=== PATIENT | female | born 1965 | race Caucasian/White ===

== ENCOUNTER → 2017-01-23 | Outpatient (CLI) | payer OTHER ==
--- NOTE | 2017-01-23 14:32 | XR ---
EXAMINATION TYPE: XR chest 2V DATE OF EXAM: 01/23/2017 2:23 PM COMPARISON: NONE TECHNIQUE: PA and lateral views submitted. HISTORY: Cough and shortness of breath FINDINGS: The lungs are clear and there is no pneumothorax, pleural effusion, or focal pneumonia. Heart is en larged. Apical granuloma suspected on the right. IMPRESSION: 1. No acute process. Pulmonary arteries are slightly prominent correlate for pulmonary arterial hyper tension. Right apical granuloma suggested.
[2017-01-24 13:00] LABS: Alternaria alternata IgE <0.35 kU/L (<0.35); Asperg. fumagatus IgE <0.35 kU/L (<0.35); Asperg. fumagatus IgE Class CLASS 0; Birch(Com.Silvr) IgE Class CLASS 0; Cat Epith & Dander IgE 2.65 kU/L (<0.35); Cat Epith & Dander IgE Class CLASS II; Clad herbarum IgE <0.35 kU/L (<0.35); Clad herbarum IgE Class CLASS 0; Common Ragweed IgE Class CLASS 0; Dermato. Pteronyssinus Class CLASS 0; Dermato. Pteronyssinus IgE <0.35 kU/L (<0.35); Dermato. farinae IgE <0.35 kU/L (<0.35); Dermato. farinae IgE Class CLASS 0; IgE (Allergen) 67.3 IU/mL (<114.0); Maple (Box Elder) IgE <0.35 kU/L (<0.35); Maple (Box Elder) IgE Class CLASS 0; Mountain Cedar IgE <0.35 kU/L (<0.35); Mountain Cedar IgE Class CLASS 0; Mouse Urine IgE Class CLASS 0; Mouse Urine Proteins,IgE <0.35 kU/L (<0.35); Mulberry IgE Class CLASS 0; Nettle IgE <0.35 kU/L (<0.35); Nettle IgE Class CLASS 0; Oak IgE <0.35 kU/L (<0.35); Penicillium notatum IgE Class CLASS 0; Rough Marshelder IgE <0.35 kU/L (<0.35); Rough Marshelder IgE Class CLASS 0; Timothy Grass IgE <0.35 kU/L (<0.35); Timothy Grass IgE Class CLASS 0; White Ash IgE Class CLASS 0
[2017-02-10 17:57] LABS: Alternaria tenius IgG 4.8 mcg/mL (< 13.6); Cladosporium herbarium IgG 35.1 mcg/mL (< 14.7); Saccaharomospora viridis Not detected (Not detected); Saccaharopoly. rectivirgula Not detected (Not detected)
== END | disposition home or self-care (01) ==
LOC: RADXRMAIN 14:06
PROVIDERS: ATTEND Internal Medicine Sleep Medicine
DX: I28.8 Other diseases of pulmonary vessels (principal); J40 Bronchitis, not specified as acute or chronic; B44.89 Other forms of aspergillosis
CPT/HCPCS: 36415; 71020; 82785; 86001; 86003; 86606; 86609

== ENCOUNTER → 2017-12-16 | Outpatient (CLI) | payer OTHER ==
--- NOTE | 2017-12-18 10:57 | MM ---
Reason for exam: screening (asymptomatic). Last mammogram was performed 1 year and 5 months ago. History: Patient is postmenopausal and is nulliparous. Physical Findings: A clinical breast exam by your physician is recommended on an annual basis and results should be correlated with mammographic findings. MG Screening Mammo w CAD Bilateral CC and MLO view(s) were taken. Prior study comparison: August 01, 2016, mammogram, performed at [facility]. December 19, 2014, mammogram, performed at [facility]. There are scattered fibroglandular densities. There is no discrete abnormality. No significant changes when compared with prior studies. ASSESSMENT: Negative, BI-RAD 1 RECOMMENDATION: Routine screening mammogram of both breasts in 1 year.
== END | disposition home or self-care (01) ==
LOC: RADMAMWWP 11:07
PROVIDERS: ATTEND Internal Medicine
DX: Z12.31 Encounter for screening mammogram for malignant neoplasm of breast (principal)
CPT/HCPCS: 77067

== ENCOUNTER → 2018-01-18 | Outpatient (CLI) | payer OTHER ==
[2018-01-18 10:49] VITALS: BP 138/86; PULSE 82; TEMP 98.4; BMI 45.7
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
[2018-01-20 15:01] LABS: Anabasine Urine <2.0 ng/mL (<2.0)
== END | disposition home or self-care (01) ==
LOC: BARWHC3 10:01
PROVIDERS: ATTEND Surgery Plastic and Reconstructive Surgery
DX: E66.01 Morbid (severe) obesity due to excess calories (principal); E11.9 Type 2 diabetes mellitus without complications; K21.9 Gastro-esophageal reflux disease without esophagitis; E78.5 Hyperlipidemia, unspecified; I10 Essential (primary) hypertension; M54.5 Low back pain; M19.90 Unspecified osteoarthritis, unspecified site; F41.9 Anxiety disorder, unspecified; F32.9 Major depressive disorder, single episode, unspecified; M17.0 Bilateral primary osteoarthritis of knee; Z79.4 Long term (current) use of insulin; Z98.890 Other specified postprocedural states; Z68.42 Body mass index [BMI] 45.0-49.9, adult
CPT/HCPCS: G0480; G0463; 80307; 80323; 80356; 99211

== ENCOUNTER → 2018-01-31 | Outpatient (CLI) | payer OTHER ==
--- NOTE | 2018-01-31 07:42 | US ---
EXAMINATION TYPE: US abdomen limited DATE OF EXAM: 01/31/2018 COMPARISON: NONE CLINICAL HISTORY: R10.11 RUQ Abdominal Pain; severe diarrhea after fatty meals; pre gastric bypass as sessment; HTN and diabetes per patient; HT5'1, [id number] EXAM MEASUREMENTS: Liver Length: 19.2 cm Gallbladder Wall: 0.2 cm CBD: 0.4 cm Right Kidney: 10.3 x 6.0 x 5.6 cm Pancreas: hyperechoic Liver: enlarged Gallbladder: multiple, mobile and shadowing stones;sludge noted in dependent portion in LLD position Evidence for sonographic Rawls's sign: No CBD: wnl Right Kidney: No hydronephrosis or masses seen IMPRESSION: 1. Mild hepatomegaly. 2. Cholelithiasis with gallbladder sludge.
--- NOTE | 2018-01-31 12:05 | NM ---
EXAMINATION TYPE: NM hepatobiliary w EF DATE OF EXAM: 01/31/2018 COMPARISON: Abdomen ultrasound 01/31/2018 HISTORY: Abdomen pain TECHNIQUE: After the intravenous administration of 5.09 mCi Tc 99m Mebrofenin hepatobiliary scintigra phy is performed. Immediate images post injection. FINDINGS: There is satisfactory initial accumulation of tracer by the liver. The gallbladder is visualized wit hin 40 minutes. The small bowel activity is noted within a minutes. Liver is enlarged. At one hour 8 ounces of oral ensure plus is given to mimic CCK and gallbladder ejection fraction is calculated at 27 %, abnormal low. Therefore there is no scintigraphic evidence of cystic or common bile duct obst ruction. IMPRESSION: Abnormal low gallbladder ejection fraction and hepatomegaly
== END | disposition home or self-care (01) ==
LOC: RADUSWWP 06:48
PROVIDERS: ATTEND Surgery Plastic and Reconstructive Surgery
DX: K80.20 Calculus of gallbladder without cholecystitis without obstruction (principal); R16.0 Hepatomegaly, not elsewhere classified
CPT/HCPCS: 76705; 78226; A9537

== ENCOUNTER → 2018-03-06 | Outpatient (CLI) | payer OTHER ==
[2018-03-06 10:54] LABS: HCT 34.7 % (34.0-46.0); HGB 10.7 gm/dL (11.4-16.0); Hypochromasia Slight; MCH 23.8 pg (25.0-35.0); MCHC 30.8 g/dL (31.0-37.0); MCV 77.2 fL (80.0-100.0); Mean Platelet Volume 6.6; Microcytosis Slight; Platelet Count 459 k/uL (150-450); RBC 4.49 m/uL (3.80-5.40); RDW 15.5 % (11.5-15.5); WBC 10.3 k/uL (3.8-10.6)
[2018-03-06 11:12] LABS: Potassium 4.4 mmol/L (3.5-5.1)
== END | disposition home or self-care (01) ==
LOC: LABWHC1 10:03
PROVIDERS: ATTEND Surgery Plastic and Reconstructive Surgery
DX: K80.10 Calculus of gallbladder with chronic cholecystitis without obstruction (principal)
CPT/HCPCS: 36415; 80051; 85027; 93005

== ENCOUNTER 2018-03-08 11:17 | Day surgery (SDC) | payer OTHER ==
[2018-03-02 14:20] VITALS: BMI 68.3
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
[~2018-03-08 11:17] MED LIST: ACETAMINOPHEN IV (For NPO) 1,000 MG in EMPTY BAG 1 BAG IVPB ONE; CLINDAMYCIN 900 MG in DEXTROSE 5% IN WATER 50 ML IVPB ONE; DEXAMETHASONE SOD PHOSPHATE 10 MG/ML 1 ML VIAL IV ONE; GENTAMICIN 460 MG in SODIUM CHLORIDE 0.9% 100 ML IVPB ONE; HEPARIN SODIUM,PORCINE 5,000 UNIT/ML 1 ML VIAL SQ ONE; LACTATED RINGERS 1,000 ML IV SCH; MIDAZOLAM 2 MG/2 ML VIAL IV PRN; ONDANSETRON 4 MG/2 ML VIAL IVP ONE; SCOPOLAMINE 1.5MG/72HR PATCH TRANSDERM ONE; SCOPOLAMINE 1.5MG/72HR PATCH TRANSDERM STA
[2018-03-08] MEDS ORDERED: LIDOCAINE 1% 20 ML VIAL (10MG/ML) FOR IV START INTRADERMA ONE (12:04)
[2018-03-08 12:11] LABS: Basophils # (A) 0.1 k/uL (0-0.2); Basophils % (A) 0 %; Eosinophils # (A) 0.2 k/uL (0-0.7); Eosinophils % (A) 2 %; HCT 33.9 % (34.0-46.0); HGB 10.8 gm/dL (11.4-16.0); Hypochromasia Slight; Lymphocytes # (A) 1.6 k/uL (1.0-4.8); Lymphocytes % (A) 16 %; MCH 24.2 pg (25.0-35.0); MCHC 31.8 g/dL (31.0-37.0); MCV 76.1 fL (80.0-100.0); Mean Platelet Volume 6.6; Microcytosis Slight; Monocytes # (A) 0.4 k/uL (0-1.0); Monocytes % (A) 4 %; Neutrophils # (A) 7.8 k/uL (1.3-7.7); Neutrophils % (A) 77 %; Platelet Count 464 k/uL (150-450); RBC 4.46 m/uL (3.80-5.40); RDW 15.6 % (11.5-15.5); WBC 10.2 k/uL (3.8-10.6)
[2018-03-08 12:15] LABS: Glucose,Whole Blood 161 mg/dL (75-99)
[2018-03-08 12:30] LABS: ALT 25 U/L (9-52); AST 19 U/L (14-36); Albumin 3.7 g/dL (3.5-5.0); Alkaline Phosphatase 129 U/L (38-126); Anion Gap 13 mmol/L; Blood Urea Nitrogen 18 mg/dL (7-17); Carbon Dioxide 24 mmol/L (22-30); Chloride 103 mmol/L (98-107); Glucose 152 mg/dL (74-99); Sodium 140 mmol/L (137-145); Total Bilirubin 0.6 mg/dL (0.2-1.3); Total Protein 6.8 g/dL (6.3-8.2)
[2018-03-08] MEDS ORDERED: INDOCYANINE GREEN 25 MG VIAL IV ONE (13:35)
[2018-03-08] MEDS ORDERED: PROPOFOL 10 MG/ML 20 ML VIAL IV ONE (13:35)
[2018-03-08] MEDS ORDERED: SUCCINYLCHOLINE CHLORIDE 100 MG/5 ML SYR IV ONE (13:35)
[2018-03-08] MEDS ORDERED: fentaNYL (PF) 50 MCG/ML 2 ML AMP ONE (13:35)
[2018-03-08] MEDS ORDERED: CLINDAMYCIN 150 MG/ML 6 ML VIAL ONE (13:35)
[2018-03-08] MEDS ORDERED: NEOSTIGMINE 1 MG/ML 10 ML VIAL ONE (13:35)
[2018-03-08] MEDS ORDERED: ROCURONIUM BROMIDE 10 MG/ML 10 ML VIAL IV ONE (13:35)
[2018-03-08] MEDS ORDERED: GLYCOPYRROLATE 0.2 MG/ML 2 ML VIAL ONE (13:35)
[2018-03-08] MEDS ORDERED: MIDAZOLAM 2 MG/2 ML VIAL ONE (13:35)
[2018-03-08] MEDS ORDERED: LIDOCAINE 1% INJ 10MG/ML (20 ML MDV) ONE (13:35)
[2018-03-08] MEDS ORDERED: LIDOCAINE 1% INJ 10MG/ML (20 ML MDV) SQ ONE (14:11)
[2018-03-08 15:31] VITALS: TEMP 98
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
[2018-03-08 15:33] VITALS: RESP 16
[2018-03-08 15:43] LABS: Glucose,Whole Blood 228 mg/dL (75-99)
[2018-03-08] MEDS ORDERED: INSULIN ASPART 100 UNIT/ML 1 ML 10 ML VIAL SQ ONE (15:46)
--- NOTE | 2018-03-08 16:00 | P.OP ---
Date of Procedure: 03/08/18 Description of Procedure: SURGEON: JAKE MAURER MD DOLLY PUSHER: PREOPERATIVE DIAGNOSES: 1. Symptomatic gallstones 2. Chronic cholecystitis 3. Morbid obesity due to excess calories, BMI 68.4 4. Insulin-dependent diabetes type 2 5. Hypertensive heart disease 6. Hyperlipidemia 7. Gastroesophageal reflux disease 8. Hypothyroidism 9. Depressive disorder 10. Asthma 11. Obstructive sleep apnea 12. Lymphedema bilateral lower extremities POSTOPERATIVE DIAGNOSES: 1. Symptomatic gallstones 2. Chronic cholecystitis 3. Morbid obesity due to excess calories, BMI 68.4 4. Insulin-dependent diabetes type 2 5. Hypertensive heart disease 6. Hyperlipidemia 7. Gastroesophageal reflux disease 8. Hypothyroidism 9. Depressive disorder 10. Asthma 11. Obstructive sleep apnea 12. Lymphedema bilateral lower extremities 13. Fatty liver disease, nonalcoholic 14. Severe hepatomegaly 15. 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 SPECIMENS REMOVED: Gallbladder. COMPLICATIONS: None. OPERATIVE FINDINGS: 1. Chronic cholecystitis INDICATIONS: The patient is a 53-year-old female who presents with cholelcystitis. Surgical intervention with a laparoscopic cholecystectomy was described at length including injury to the biliary tree, bleeding, infection, need for further surgery. Informed consent was obtained. Robotic assisted laparoscopic approach was described. Benefits and risks of the procedure including but not limited to bleeding, infection, injury to the biliary tree was described. Informed consent was obtained. DESCRIPTION OF PROCEDURE: Patient was brought to the operating room, placed in supine position. After general induction, the abdomen had been prepped and draped in standard sterile fashion. The robotic da En XI system was primed. After a timeout protocol was performed, the patient had been prepped and draped in standard sterile fashion. The patient was injected with indocyanine green. A 5 mm 0 degrees laparoscopic trocar entry was performed along the left upper quadrant. The abdomen insufflated to 15 mmHg pressure which she tolerated well. Diagnostic laparoscopy demonstrated no injury to bowel viscera or mesentery. The liver had severe hepatomegaly obscuring the gallbladder including moderate intra-abdominal fat. Nodular appearance of the liver was identified consistent with early cirrhosis. Next, two 8 mm robotic ports were placed along the right upper abdomen. The camera 8-mm port was maintained along the epigastrium. Another 8 mm port was placed along the left of the upper midline abdominal wall after exchanging the 5 mm port. Please note that the ports were placed at least 10 to 15 cm away from the target anatomy of the gallbladder. The robot was docked along the left lateral abdomen. The patient was repositioned in reverse Trendelenburg position at 20-degrees. Using a grasper for arm 3, a grasper for arm 4, including hook cautery for arm 1 , the robotic system was docked and primed as described. Instruments were interchanged by the rehab assistant including hook cautery, Bovie cautery and clip appliers. I had sat at the console. Adhesions were identified along the infundibulum of the gallbladder and addressed using hook cautery. The gallbladder had severe hepatomegaly adding complexity to her case by at least 30 minutes. The gallbladder fundus was retracted towards the abdominal wall. Initial attention was brought to the infundibulum which was gently retracted in the inferior lateral approach. Using a grasper, the cystic duct including the cystic artery was carefully skeletonized. FIREFLY was used to identify the cystic artery and cystic structures. Large PLASTIC clips were used throughout the entire case. Using a clip medical transcriptionist 2 clips were placed proximally, and 1 clip was placed distally along the cystic duct and then cauterized with the cautery. Additional clips were used to control for accessory bile duct. Again care was taken to avoid any injury to the biliary tree as the common bile duct was clearly visualized during this portion of dissection. Next, the cystic artery was similarly clipped and cauterized. Electro-Bovie cautery was used to remove the gallbladder from the hepatic fossa. Hemostasis was checked and found to be adequate. Iatrogenic decompression did occur of the gallbladder. The robot was undocked. I re-scrubbed into the case. Using a 10 mm Endo Catch bag via the left upper quadrant incision, the specimen was removed from the abdominal cavity. All pneumoperitoneum instruments were evacuated from the abdominal cavity. The incisions were reapproximated using 4-0 Monocryl in an interrupted subcuticular fashion. Fascial defects were less than 8 mm in size. Please note along the trocar sites, local anesthetic was placed as a field block prior to insertion of all instruments. All incisions were cleansed using diluted hydrogen peroxide. Liquid glue was applied to the skin. At the end of the procedure needle, sponge, and instrument count had been verified correct by the surgical territory manager. The patient was transferred to postanesthesia care unit in stable condition. Intraoperative films were shared with the patient's family who were very pleased with the level of care. Console time 41 minutes
[2018-03-08] MEDS: fentaNYL (PF) 50 MCG/ML 2 ML AMP IV PRN ×2 (16:02→16:05)
[2018-03-08] MEDS ORDERED: ONDANSETRON 4 MG/2 ML VIAL IVP ONE (16:29)
[2018-03-08 17:37] VITALS: BP 131/66; PULSE 70
[2018-03-08 17:45] LABS: Glucose,Whole Blood 229 mg/dL (75-99)
== END 2018-03-08 18:10 | disposition home or self-care (01) ==
LOC: OR 11:17
PROVIDERS: ATTEND Surgery Plastic and Reconstructive Surgery
DX: K80.10 Calculus of gallbladder with chronic cholecystitis without obstruction (principal); E66.01 Morbid (severe) obesity due to excess calories; Z68.44 Body mass index [BMI] 60.0-69.9, adult; I11.9 Hypertensive heart disease without heart failure; E78.5 Hyperlipidemia, unspecified; K21.9 Gastro-esophageal reflux disease without esophagitis; E03.9 Hypothyroidism, unspecified; F32.9 Major depressive disorder, single episode, unspecified; J45.909 Unspecified asthma, uncomplicated; G47.33 Obstructive sleep apnea (adult) (pediatric); I89.0 Lymphedema, not elsewhere classified; K76.0 Fatty (change of) liver, not elsewhere classified; K74.60 Unspecified cirrhosis of liver; E11.9 Type 2 diabetes mellitus without complications; M19.90 Unspecified osteoarthritis, unspecified site; G43.909 Migraine, unspecified, not intractable, without status migrainosus; R00.2 Palpitations; Z99.89 Dependence on other enabling machines and devices; Z79.82 Long term (current) use of aspirin; Z79.890 Hormone replacement therapy; Z79.4 Long term (current) use of insulin; Z79.899 Other long term (current) drug therapy; Z88.5 Allergy status to narcotic agent; Z91.048 Other nonmedicinal substance allergy status; Z88.0 Allergy status to penicillin; Z91.013 Allergy to seafood; Z91.041 Radiographic dye allergy status
CPT/HCPCS: 80053; 85025; 47562; J2250; J1644; J1100; J2710; J2405; J2001; J3010; J1580; J0131; J0330; J2704; 88304

== ENCOUNTER → 2018-03-20 | Outpatient (CLI) | payer OTHER ==
[2018-03-20 09:08] LABS: HCT 32.6 % (34.0-46.0); HGB 10.5 gm/dL (11.4-16.0); Hypochromasia Slight; MCH 24.7 pg (25.0-35.0); MCHC 32.3 g/dL (31.0-37.0); MCV 76.5 fL (80.0-100.0); Mean Platelet Volume 6.2; Microcytosis Slight; Platelet Count 445 k/uL (150-450); RBC 4.26 m/uL (3.80-5.40); RDW 15.5 % (11.5-15.5); WBC 9.6 k/uL (3.8-10.6)
[2018-03-20 09:15] LABS: Appearance,Urine Clear (Clear); Bilirubin,Urine Negative (Negative); Blood,Urine Negative (Negative); Color,Urine Light Yellow; Glucose,Urine (UA) Negative (Negative); Ketones,Urine Negative (Negative); Leukocyte Esterase,Urine Negative (Negative); Nitrite,Urine Negative (Negative); PH, Urine 5.5 (5.0-8.0); Protein,Urine Negative (Negative); Specific Gravity,Urine 1.007 (1.001-1.035); Urobilinogen,Urine <2.0 mg/dL (<2.0)
--- NOTE | 2018-03-20 09:22 | CT ---
EXAMINATION TYPE: CT abdomen pelvis wo con DATE OF EXAM: 03/20/2018 COMPARISON: None HISTORY: pain CT DLP: 2831.8 mGycm Examination of the solid and hollow viscera is limited given the lack of contrast. FINDINGS: LUNG BASES: No evidence for nodule. No evidence for infiltrate. LIVER/GB: The gallbladder is unremarkable. No space-occupying hepatic lesion. PANCREAS: No pancreatic mass identified. No inflammatory process seen. SPLEEN: No evidence for splenomegaly. No intrasplenic lesions seen. ADRENALS: No adrenal nodules identified. No evidence for thickening. KIDNEYS: No evidence for renal mass. No nephrolithiasis. No hydronephrosis. BOWEL: Appendix has a normal appearance. No evidence of bowel obstruction. No inflammatory process. Lymph nodes: No evidence for adenopathy greater than 1 cm. Abdominal aorta: Atheromatous changes seen. No evidence for aneurysm. Genital organs: No significant abnormality. Other: No significant abnormality. IMPRESSION: 1. No evidence for hydronephrosis or nephrolithiasis.
[2018-03-20 09:33] LABS: ALT 22 U/L (9-52); AST 24 U/L (14-36); Albumin 3.6 g/dL (3.5-5.0); Alkaline Phosphatase 113 U/L (38-126); Anion Gap 12 mmol/L; Blood Urea Nitrogen 16 mg/dL (7-17); Carbon Dioxide 27 mmol/L (22-30); Chloride 101 mmol/L (98-107); Glucose 151 mg/dL (74-99); Potassium 3.9 mmol/L (3.5-5.1); Sodium 140 mmol/L (137-145); Total Bilirubin 0.4 mg/dL (0.2-1.3); Total Protein 6.6 g/dL (6.3-8.2)
== END | disposition home or self-care (01) ==
LOC: RADCTMAIN 07:55
PROVIDERS: ATTEND Surgery Plastic and Reconstructive Surgery
DX: N20.0 Calculus of kidney (principal); N39.0 Urinary tract infection, site not specified; Z88.0 Allergy status to penicillin; Z88.5 Allergy status to narcotic agent
CPT/HCPCS: 36415; 74176; 80053; 81003; 85027

== ENCOUNTER 2018-05-16 07:00 | Day surgery (SDC) | payer OTHER ==
[2018-05-10 10:09] VITALS: BMI 64.9
[~2018-05-16 07:00] MED LIST changes: -ACETAMINOPHEN IV (For NPO) 1,000 MG in EMPTY BAG 1 BAG IVPB ONE; -CLINDAMYCIN 900 MG in DEXTROSE 5% IN WATER 50 ML IVPB ONE; -DEXAMETHASONE SOD PHOSPHATE 10 MG/ML 1 ML VIAL IV ONE; -GENTAMICIN 460 MG in SODIUM CHLORIDE 0.9% 100 ML IVPB ONE; -HEPARIN SODIUM,PORCINE 5,000 UNIT/ML 1 ML VIAL SQ ONE; +LIDOCAINE 1% 20 ML VIAL (10MG/ML) FOR IV START INTRADERMA PRN; -MIDAZOLAM 2 MG/2 ML VIAL IV PRN; -ONDANSETRON 4 MG/2 ML VIAL IVP ONE; -SCOPOLAMINE 1.5MG/72HR PATCH TRANSDERM ONE; -SCOPOLAMINE 1.5MG/72HR PATCH TRANSDERM STA
[2018-05-16 07:50] VITALS: TEMP 98.2
[2018-05-16] MEDS ORDERED: LACTATED RINGERS 1,000 ML IV ONE ×2 (07:51)
[2018-05-16 07:52] LABS: Glucose,Whole Blood 147 mg/dL (75-99)
[2018-05-16] MEDS ORDERED: ONDANSETRON 4 MG/2 ML VIAL ONE (07:57)
[2018-05-16] MEDS ORDERED: PROPOFOL 10 MG/ML 20 ML VIAL IV ONE (07:57)
[2018-05-16] MEDS ORDERED: MIDAZOLAM 2 MG/2 ML VIAL ONE (07:57)
[2018-05-16] MEDS ORDERED: KETAMINE 10 MG/ML 20 ML VIAL ONE (07:57)
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
--- NOTE | 2018-05-16 08:24 | P.PCN ---
Date of Procedure: 05/16/18 Condition: other Description of Procedure: PREOPERATIVE DIAGNOSIS: Gastroesophageal reflux disease. Morbid obesity. POSTOPERATIVE DIAGNOSIS: Morbid obesity. Gastritis. Gastroesophageal reflux disease. OPERATION: Esophagogastroduodenoscopy with biopsies along antrum. SURGEON: Dot Tate MD ANESTHESIA: MAC. INDICATIONS: The patient is a 53-year-old female who presents with a history of reflux disease. Benefits and risks of the procedure were described. Informed consent was obtained. DESCRIPTION: The patient was brought into the endoscopy suite and laid in the left lateral decubitus position. An Olympus gastroscope was passed along the posterior oropharynx down to the distal esophagus where the squamocolumnar junction was encountered at 40 cm from the incisors. The stomach was entered and no bile reflux was found. Additional findings are listed below. Biopsies with cold forceps were obtained of the antrum. The first through third portion of the duodenum was examined and unremarkable. Retroflexion of the scope confirmed Hill grade 2 lower esophageal valve. The squamocolumnar junction demonstrated LA grade A erosive esophagitis. The stomach was desufflated. The patient tolerated the procedure well. FINDINGS: Squamocolumnar junction 40 cm from the incisors. Diaphragmatic hiatus at 40 cm. Hill grade 2 lower esophageal valve. LA grade A erosive esophagitis. No active duodenitis. Active gastritis RECOMMENDATIONS: Upper endoscopy as needed.
--- NOTE | 2018-05-16 08:42 | P.PCN ---
Date of Procedure: 05/16/18 Description of Procedure: PREOPERATIVE DIAGNOSIS: Colonoscopy screening, first POSTOPERATIVE DIAGNOSIS: Colonoscopy screening. OPERATION: Colonoscopy to the ileocecal valve and appendiceal orifice. SURGEON: Dot Tate MD. ANESTHESIA: MAC. INDICATIONS: The patient is a 53-year-old female who presents for colonoscopy screening. Benefits and risks were described and informed consent was obtained. DESCRIPTION OF PROCEDURE: The patient had undergone Gatorade, MiraLAX and Dulcolax prep. She had been brought into the operating room and laid in the left lateral decubitus position. After adequate intravenous sedation, the rectum was examined with 2% lidocaine jelly. No external hemorrhoids were encountered. The rectal tone was within normal limits. No lesions were palpated in the rectal vault. An Olympus colonoscope was advanced until the ileocecal valve and appendiceal orifice were clearly viewed. The prep was excellent with clear visualization of the mucosal folds. The scope was removed with visualization of each mucosal fold. No scattered diverticulosis was encountered. No colonic polyps were found. No evidence of focal colitis was found. Retroflexion of the scope demonstrated no internal hemorrhoids without active bleeding or inflammation. The colon was desufflated. The patient had tolerated the procedure well. Withdrawal time was over 6 minutes. FINDINGS: No internal hemorrhoids No external prolapsed hemorrhoids. No arteriovenous malformations. No adenomatous polyps. No focal colitis. RECOMMENDATIONS: Lower endoscopy in 10 years per screening guidelines; however down to 5 years, 2022, with family history of colon polyps or cancer. Plan - Discharge Summary New Discharge Prescriptions: No Action Levothyroxine Sodium [Synthroid] 150 mcg PO DAILY Citalopram Hydrobromide [Citalopram HBr] 40 mg PO DAILY Atorvastatin [Lipitor] 80 mg PO HS Omeprazole [PriLOSEC] 20 mg PO AC-BRKFST Cholecalciferol [Vitamin D3] 4,000 unit PO DAILY Loratadine [Claritin] 10 mg PO HS Furosemide [Lasix] 40 mg PO DAILY Montelukast [Singulair] 10 mg PO HS Magnesium Oxide [Mag-Ox] 400 mg PO BID Losartan Potassium [Cozaar] 100 mg PO DAILY metFORMIN HCL [Glucophage] 1,000 mg PO BID Aspirin 81 mg PO DAILY Insulin Glargine [Lantus] 30 unit SQ HS Insulin Glulisine [Apidra] 20 units SQ TID-W/MEALS amLODIPine [Norvasc] 5 mg PO BID Gabapentin [Neurontin] 100 mg PO DAILY Gabapentin [Neurontin] 200 mg PO HS hydrALAZINE HCL [Apresoline] 50 mg PO BID Insulin Glulisine [Apidra] 0 unit SQ AC-TID PRN PRN Reason: Blood Sugar - High Diltiazem HCl 30 mg PO BID Ferrous Sulfate [Iron] 325 mg PO BID Insulin Glulisine [Apidra] 4 unit SQ HS PRN PRN Reason: takes with hs snack Discharge Medication List Atorvastatin [Lipitor] 80 mg PO HS 01/26/15 [History] Cholecalciferol [Vitamin D3] 4,000 unit PO DAILY 01/26/15 [History] Citalopram Hydrobromide [Citalopram HBr] 40 mg PO DAILY 01/26/15 [History] Levothyroxine Sodium [Synthroid] 150 mcg PO DAILY 01/26/15 [History] Omeprazole [PriLOSEC] 20 mg PO AC-BRKFST 01/26/15 [History] Furosemide [Lasix] 40 mg PO DAILY 07/18/16 [History] Loratadine [Claritin] 10 mg PO HS 07/18/16 [History] Losartan Potassium [Cozaar] 100 mg PO DAILY 07/18/16 [History] Magnesium Oxide [Mag-Ox] 400 mg PO BID 07/18/16 [History] Montelukast [Singulair] 10 mg PO HS 07/18/16 [History] Aspirin 81 mg PO DAILY 01/18/18 [History] Gabapentin [Neurontin] 100 mg PO DAILY 01/18/18 [History] Insulin Glargine [Lantus] 30 unit SQ HS 01/18/18 [History] Insulin Glulisine [Apidra] 20 units SQ TID-W/MEALS 01/18/18 [History] amLODIPine [Norvasc] 5 mg PO BID 01/18/18 [History] metFORMIN HCL [Glucophage] 1,000 mg PO BID 01/18/18 [History] Gabapentin [Neurontin] 200 mg PO HS 03/02/18 [History] hydrALAZINE HCL [Apresoline] 50 mg PO BID 03/02/18 [History] Insulin Glulisine [Apidra] 0 unit SQ AC-TID PRN 03/06/18 [History] Diltiazem HCl 30 mg PO BID 05/10/18 [History] Ferrous Sulfate [Iron] 325 mg PO BID 05/10/18 [History] Insulin Glulisine [Apidra] 4 unit SQ HS PRN 05/10/18 [History]
[2018-05-16 09:13] VITALS: RESP 18
[2018-05-16 09:38] VITALS: BP 102/65; PULSE 61
== END 2018-05-16 09:44 | disposition home or self-care (01) ==
LOC: ORWHC2ENDO 07:00
PROVIDERS: ATTEND Surgery Plastic and Reconstructive Surgery
DX: Z12.11 Encounter for screening for malignant neoplasm of colon (principal); K21.9 Gastro-esophageal reflux disease without esophagitis; K29.70 Gastritis, unspecified, without bleeding; K22.10 Ulcer of esophagus without bleeding; K31.9 Disease of stomach and duodenum, unspecified; E78.5 Hyperlipidemia, unspecified; J45.909 Unspecified asthma, uncomplicated; E11.9 Type 2 diabetes mellitus without complications; I10 Essential (primary) hypertension; M19.90 Unspecified osteoarthritis, unspecified site; E07.9 Disorder of thyroid, unspecified; G47.30 Sleep apnea, unspecified; Z99.89 Dependence on other enabling machines and devices; I89.0 Lymphedema, not elsewhere classified; D64.9 Anemia, unspecified; E66.01 Morbid (severe) obesity due to excess calories; Z68.44 Body mass index [BMI] 60.0-69.9, adult; F32.9 Major depressive disorder, single episode, unspecified; F41.9 Anxiety disorder, unspecified; Z79.82 Long term (current) use of aspirin; Z79.890 Hormone replacement therapy; Z79.4 Long term (current) use of insulin; Z79.899 Other long term (current) drug therapy; Z91.041 Radiographic dye allergy status; Z88.5 Allergy status to narcotic agent; Z88.0 Allergy status to penicillin; Z91.013 Allergy to seafood; Z91.048 Other nonmedicinal substance allergy status; Z91.09 Other allergy status, other than to drugs and biological substances
CPT/HCPCS: 88305; 43239; J2250; J2405; J2704; G0121

== ENCOUNTER 2018-07-25 23:01 | Observation (INO) | payer OTHER ==
--- NOTE | 2018-07-25 23:13 | ED ---
Chest Pain HPI - General Chief Complaint: Chest Pain Stated Complaint: CHEST PAIN,DIZZINESS,SOB Time Seen by Provider: 07/25/18 23:10 Source: patient, RN notes reviewed, old records reviewed Mode of arrival: wheelchair Limitations: no limitations - History of Present Illness Initial Comments: This is a 53-year-old female to the ER for evaluation. Patient presents today for evaluation Chua chest pain chest pain shortness breath exertional shortness of breath. History of high blood pressure, no significant known history of cardiac disease, patient states she had heart catheterization 2 years ago which was normal far as she knows. No recent fever no cough or congestion. She has chest pain 3 days source of after yesterday and EKG done was told was normal, patient states symptoms have persisted mainly exertional shortness of breath and dyspnea. Patient's activity level significantly decreased MD Complaint: chest pain -: days(s) (5) Onset: during rest, during exertion Pain Location: substernal, epigastric Pain Radiation: none Severity: moderate Severity scale (1-10): 6 Quality: tightness, heaviness Consistency: intermittent Improves With: nothing Worsens With: exertion Anginal Symptoms: nausea, vomiting, dyspnea Treatments Prior to Arrival: none - Related Data Home Medications Medication Instructions Recorded Confirmed Atorvastatin [Lipitor] 80 mg PO HS 01/26/15 07/25/18 Citalopram Hydrobromide 40 mg PO DAILY 01/26/15 07/25/18 [Citalopram HBr] Omeprazole [PriLOSEC] 20 mg PO DAILY 01/26/15 07/25/18 Furosemide [Lasix] 40 mg PO DAILY 07/18/16 07/25/18 Loratadine [Claritin] 10 mg PO HS 07/18/16 07/25/18 Losartan Potassium [Cozaar] 100 mg PO DAILY 07/18/16 07/25/18 Magnesium Oxide [Mag-Ox] 400 mg PO BID 07/18/16 07/25/18 Montelukast [Singulair] 10 mg PO HS 07/18/16 07/25/18 Aspirin 81 mg PO DAILY 01/18/18 07/25/18 Gabapentin [Neurontin] 100 mg PO DAILY 01/18/18 07/25/18 Insulin Glargine [Lantus] 30 unit SQ HS 01/18/18 07/25/18 Insulin Glulisine [Apidra] 20 units SQ AC-TID 01/18/18 07/25/18 amLODIPine [Norvasc] 5 mg PO BID 01/18/18 07/25/18 metFORMIN HCL [Glucophage] 1,000 mg PO BID 01/18/18 07/25/18 Gabapentin [Neurontin] 200 mg PO HS 03/02/18 07/25/18 hydrALAZINE HCL [Apresoline] 100 mg PO DAILY 03/02/18 07/25/18 Insulin Glulisine [Apidra] See Protocol SQ AC-TID 03/06/18 07/25/18 Diltiazem HCl 60 mg PO BID 05/10/18 07/25/18 Cholecalciferol (Vitamin D3) 4,000 unit PO DAILY 07/25/18 07/25/18 [Vitamin D3] Levothyroxine Sodium [Synthroid] 200 mcg PO DAILY 07/25/18 07/25/18 hydrALAZINE HCL [Apresoline] 50 mg PO HS 07/25/18 07/25/18 Allergies Allergy/AdvReac Type Severity Reaction Status Date / Time adhesive tape Allergy Rash/Hives Verified 07/25/18 23:34 Iodinated Contrast- Oral and Allergy Anaphylaxis Verified 07/25/18 23:34 IV Dye iodine Allergy Anaphylaxis Verified 07/25/18 23:34 Penicillins Allergy Anaphylaxis Verified 07/25/18 23:34 shellfish derived [Shellfish] Allergy Anaphylaxis Verified 07/25/18 23:34 codeine AdvReac Nausea & Verified 07/25/18 23:34 Vomiting Review of Systems ROS Statement: Those systems with pertinent positive or pertinent negative responses have been documented in the HPI. ROS Other: All systems not noted in ROS Statement are negative. EKG Findings - EKG Comments: EKG Findings:: EKG shows normal sinus rhythm rate of 85, NH 140, QRS 96, QTc 480 Past Medical History Past Medical History: Asthma, Diabetes Mellitus, GERD/Reflux, Hyperlipidemia, Hypertension, Osteoarthritis (OA), Sleep Apnea/CPAP/BIPAP, Thyroid Disorder Additional Past Medical History / Comment(s): PVC"PALPITATIONS, MIGARINES, LYMPHEDEMA -BILATERAL LEGS WEARS LEG BRACES FOR IT, History of Any Multi-Drug Resistant Organisms: None Reported Past Surgical History: Appendectomy, Section, Cholecystectomy, Heart Catheterization, Hysterectomy, Orthopedic Surgery Additional Past Surgical History / Comment(s): LT LEG/ANLKE- HARDWARE WAS RMOVED -A SMALL PEICE OF SCREW LEFT, COLONOSCOPY-BENIGN POLYPS Past Anesthesia/Blood Transfusion Reactions: Motion Sickness Additional Past Anesthesia/Blood Transfusion Reaction / Comment(s): CAN'T RIDE IN BACK SEAT OF CAR Past Psychological History: Anxiety, Depression Smoking Status: Never smoker Past Alcohol Use History: None Reported Past Drug Use History: None Reported - Past Family History Father Family Medical History: Coronary Artery Disease (CAD), Diabetes Mellitus, Hypertension Additional Family Medical History / Comment(s): HAD TOTAL OCCLUSION LT GROIN - HAD SX Mother Family Medical History: Dementia, Diabetes Mellitus, Thyroid Disorder General Exam Limitations: no limitations General appearance: alert, in no apparent distress, anxious, obese Head exam: Present: atraumatic, normocephalic, normal inspection Eye exam: Present: normal appearance, PERRL, EOMI. Absent: scleral icterus, conjunctival injection, periorbital swelling ENT exam: Present: normal exam, mucous membranes moist Neck exam: Present: normal inspection. Absent: tenderness, meningismus, lymphadenopathy Respiratory exam: Present: normal lung sounds bilaterally. Absent: respiratory distress, wheezes, rales, rhonchi, stridor Cardiovascular Exam: Present: regular rate, normal rhythm, normal heart sounds. Absent: systolic murmur, diastolic murmur, rubs, gallop, clicks GI/Abdominal exam: Present: soft, normal bowel sounds. Absent: distended, tenderness, guarding, rebound, rigid Extremities exam: Present: normal inspection, full ROM, normal capillary refill. Absent: tenderness, pedal edema, joint swelling, calf tenderness Back exam: Present: normal inspection Neurological exam: Present: alert, oriented X3, CN II-XII intact Psychiatric exam: Present: normal affect, normal mood Skin exam: Present: warm, dry, intact, normal color. Absent: rash Course Vital Signs 07/25/18 07/25/18 07/26/18 23:03 23:50 00:10 Temperature 97.9 F Pulse Rate 92 79 75 Respiratory 18 18 19 Rate Blood Pressure 220/82 148/75 136/66 O2 Sat by Pulse 95 92 L 95 Oximetry 07/26/18 07/26/18 07/26/18 00:20 00:30 00:40 Temperature Pulse Rate 81 74 72 Respiratory 18 19 18 Rate Blood Pressure 136/66 136/66 136/66 O2 Sat by Pulse 96 96 96 Oximetry - Reevaluation(s) Reevaluation #1: 07/26/18 02:12 medical record is reviewed Patient continued with chest pain shortness of breath Chest Pain MDM - MDM 53 female the ER for evaluation of chest pain exertional dyspnea. Patient is CT negative, patient with persistent chest pain and elevated blood pressure, patient be admitted for cardiac observation Disposition Clinical Impression: Chest pain Disposition: ADMITTED IP TO THIS HOSP Condition: Undetermined Is patient prescribed a controlled substance at d/c from ED?: No Referrals: Chu Winchester MD [Primary Care Provider] - 1-2 days
[2018-07-25] MEDS ORDERED: SODIUM CHLORIDE 0.9% 1,000 ML IV STA (23:15)
[2018-07-25 23:50] LABS: Basophils # (A) 0.1 k/uL (0-0.2); Basophils % (A) 1 %; Eosinophils # (A) 0.3 k/uL (0-0.7); Eosinophils % (A) 3 %; HCT 38.2 % (34.0-46.0); HGB 11.7 gm/dL (11.4-16.0); Hypochromasia Slight; Lymphocytes # (A) 2.3 k/uL (1.0-4.8); Lymphocytes % (A) 17 %; MCH 23.8 pg (25.0-35.0); MCHC 30.6 g/dL (31.0-37.0); MCV 77.7 fL (80.0-100.0); Mean Platelet Volume 6.5; Microcytosis Slight; Monocytes # (A) 0.6 k/uL (0-1.0); Monocytes % (A) 5 %; Neutrophils # (A) 9.5 k/uL (1.3-7.7); Neutrophils % (A) 73 %; Platelet Count 470 k/uL (150-450); RBC 4.91 m/uL (3.80-5.40); RDW 15.9 % (11.5-15.5)
--- NOTE | 2018-07-25 23:52 | XR ---
EXAMINATION TYPE: XR chest 2V DATE OF EXAM: 07/25/2018 COMPARISON: 01/23/2017 HISTORY: Chest pain and dizziness TECHNIQUE: Frontal and lateral views of the chest are obtained. FINDINGS: There is no heart failure nor confluent pneumonic infiltrate. Costophrenic angles are sruthi r. Heart size is normal. There are chest leads. Bony thorax is intact. IMPRESSION: No active cardiopulmonary disease. No change.
[2018-07-26] MEDS ORDERED: LABETALOL 5 MG/ML VIAL MDV IVP STA (00:01)
[2018-07-26 00:02] LABS: Calcium 9.5 mg/dL (8.4-10.2); Magnesium 1.5 mg/dL (1.6-2.3); Potassium 3.7 mmol/L (3.5-5.1); Total Bilirubin 0.4 mg/dL (0.2-1.3); Total Protein 7.5 g/dL (6.3-8.2)
[2018-07-26 00:03] LABS: Partial Thromboplastin Time 24.6 sec (22.0-30.0); Prothrombin Time 9.7 sec (9.0-12.0)
[2018-07-26 00:10] LABS: Creatine Kinase 57 U/L (30-135)
[2018-07-26 00:11] LABS: D-Dimer 0.67 mg/L FEU (<0.60)
[2018-07-26 00:23] LABS: Creatine Kinase MB 0.4 ng/mL (0.0-2.4); Troponin I <0.012 ng/mL (0.000-0.034)
[2018-07-26] MEDS ORDERED: methylPREDNISolone SOD SUCCI 125 MG/2 ML VIAL IV STA (00:25)
[2018-07-26] MEDS ORDERED: FAMOTIDINE 20 MG/2 ML VIAL IV STA (00:25)
[2018-07-26] MEDS ORDERED: diphenhydrAMINE 50 MG/ML 1 ML VIAL IVP STA (00:25)
--- NOTE | 2018-07-26 01:22 | CT ---
EXAMINATION TYPE: CT angio chest DATE OF EXAM: 07/26/2018 1:09 AM COMPARISON: None HISTORY: chest pain;elevated D-dimer CT DLP: 956.7 mGycm Automated exposure control for dose reduction was used. CONTRAST: CTA scan of the thorax is performed with IV Contrast, patient injected with 80 mL of Isovue 370, pulm onary embolism protocol. Are 3-D post processed images.. FINDINGS: Exam is limited slightly by patient's size. Heart appears enlarged. There is interstitial pulmonary i nfiltrates in the lungs throughout. Thoracic aorta shows no evidence of aneurysm or dissection. There is no pericardial effusion. There is no pleural effusion. I see no filling defects in the pulmonary arteries. There is no mediastinal adenopathy. There are no hilar masses. IMPRESSION: NO EVIDENCE OF PULMONARY EMBOLISM. There is some groundglass interstitial pulmonary infiltrate that i s nonspecific and could relate to fibrosis. No pulmonary consolidation.
[2018-07-26] MEDS ORDERED: NITROGLYCERIN SL TABS 0.4 MG TAB SUBLINGUAL PRN (02:13)
[2018-07-26] MEDS ORDERED: ASPIRIN 81 MG PO STA (02:13)
[2018-07-26] MEDS ORDERED: MORPHINE SULFATE 4 MG/ML SYRINGE IV PRN (02:13)
[2018-07-26 03:13] VITALS: BMI 65.8
[2018-07-26 06:46] LABS: Creatine Kinase 52 U/L (30-135)
[2018-07-26 06:59] LABS: Creatine Kinase MB 0.4 ng/mL (0.0-2.4); Troponin I <0.012 ng/mL (0.000-0.034)
[2018-07-26 07:13] LABS: Glucose,Whole Blood 231 mg/dL (75-99)
--- NOTE | 2018-07-26 09:09 | P.CNPUL ---
History of Present Illness Consult date: 07/26/18 Reason for consult: dyspnea, chest pain, obstructive sleep apnea Chief complaint: Increased shortness of breath and lower extremity edema History of present illness: 53-year-old morbidly obese female with history of sleep disorder breathing and sleep apnea on CPAP has been using intermittently, patient also has a history of chronic persistent asthma mild to moderate category has been on bronchodilator therapy however asthma lately has been in remission, patient is currently being evaluated for weight loss surgery, for the last 5-7 days she's been having issues associated with increased shortness of breath which has been paroxysmal some dry nonproductive cough is present as well intermittently patient has been having episode of chest tightness and pain and dizziness as well she was evaluated by primary care provider noted to have elevated blood pressure advised to adjust the blood pressure medicine, patient has been recommended to take Lasix lately for unclear reason she has multiple not been taking them last night she had the increase in shortness of breath felt dizzy also had substernal burning chest pain which is intermittent came into emergency department is being seen evaluated examined has been admitted into the hospital for avascular services consultation pending, on specific questioning she denies any loss of consciousness) but does have intermittent lightheadedness and dizziness which she attributes it to elevated blood pressure no weak as though, does have intermittent cough and shortness of breath denies any sputum production denies any night sweats fever or chills, chest pain is predominantly substernal with heaviness burning sensationin the radiation is present some correlation with elevation of blood pressure is noted as well with the symptoms, denies any bowel or bladder related problems, patient expresses that she did have gained close to 5-7 pounds in last few weeks Review of Systems All systems: negative Past Medical History Past Medical History: Asthma, Diabetes Mellitus, GERD/Reflux, Hyperlipidemia, Hypertension, Osteoarthritis (OA), Sleep Apnea/CPAP/BIPAP, Thyroid Disorder Additional Past Medical History / Comment(s): PVC"PALPITATIONS, MIGARINES, LYMPHEDEMA -BILATERAL LEGS WEARS compression stockings History of Any Multi-Drug Resistant Organisms: None Reported Past Surgical History: Appendectomy, Section, Cholecystectomy, Heart Catheterization, Hysterectomy, Orthopedic Surgery Additional Past Surgical History / Comment(s): LT LEG/ANLKE- HARDWARE WAS RMOVED -A SMALL PEICE OF SCREW LEFT, COLONOSCOPY-BENIGN POLYPS Past Anesthesia/Blood Transfusion Reactions: Motion Sickness Additional Past Anesthesia/Blood Transfusion Reaction / Comment(s): CAN'T RIDE IN BACK SEAT OF CAR Smoking Status: Never smoker - Past Family History Father Family Medical History: Coronary Artery Disease (CAD), Diabetes Mellitus, Hypertension Additional Family Medical History / Comment(s): HAD TOTAL OCCLUSION LT GROIN - HAD SX Mother Family Medical History: Dementia, Diabetes Mellitus, Thyroid Disorder Medications and Allergies Home Medications Medication Instructions Recorded Confirmed Type Atorvastatin [Lipitor] 80 mg PO HS 01/26/15 07/26/18 History Citalopram Hydrobromide 40 mg PO DAILY 01/26/15 07/26/18 History [Citalopram HBr] Omeprazole [PriLOSEC] 20 mg PO DAILY 01/26/15 07/26/18 History Furosemide [Lasix] 40 mg PO DAILY 07/18/16 07/26/18 History Loratadine [Claritin] 10 mg PO HS 07/18/16 07/26/18 History Losartan Potassium [Cozaar] 100 mg PO DAILY 07/18/16 07/26/18 History Magnesium Oxide [Mag-Ox] 400 mg PO BID 07/18/16 07/26/18 History Montelukast [Singulair] 10 mg PO HS 07/18/16 07/26/18 History Aspirin 81 mg PO DAILY 01/18/18 07/26/18 History Gabapentin [Neurontin] 100 mg PO DAILY 01/18/18 07/26/18 History Insulin Glargine [Lantus] 30 unit SQ HS 01/18/18 07/26/18 History Insulin Glulisine [Apidra] 20 units SQ AC-TID 01/18/18 07/26/18 History amLODIPine [Norvasc] 5 mg PO BID 01/18/18 07/26/18 History metFORMIN HCL [Glucophage] 1,000 mg PO BID 01/18/18 07/26/18 History Gabapentin [Neurontin] 200 mg PO HS 03/02/18 07/26/18 History hydrALAZINE HCL [Apresoline] 100 mg PO DAILY 03/02/18 07/26/18 History Insulin Glulisine [Apidra] See Protocol SQ AC-TID 03/06/18 07/26/18 History Diltiazem HCl 60 mg PO BID 05/10/18 07/26/18 History Cholecalciferol (Vitamin D3) 4,000 unit PO DAILY 07/25/18 07/26/18 History [Vitamin D3] Levothyroxine Sodium [Synthroid] 200 mcg PO DAILY 07/25/18 07/26/18 History hydrALAZINE HCL [Apresoline] 100 mg PO HS 07/25/18 07/26/18 History Allergies Allergy/AdvReac Type Severity Reaction Status Date / Time adhesive tape Allergy Rash/Hives Verified 07/26/18 02:49 Iodinated Contrast- Oral and Allergy Anaphylaxis Verified 07/26/18 02:49 IV Dye iodine Allergy Anaphylaxis Verified 07/26/18 02:49 Penicillins Allergy Anaphylaxis Verified 07/26/18 02:49 shellfish derived [Shellfish] Allergy Anaphylaxis Verified 07/26/18 02:49 codeine AdvReac Nausea & Verified 07/26/18 02:49 Vomiting Physical Exam Vitals: Vital Signs Temp Pulse Pulse Resp BP BP Pulse Ox 07/26/18 07:30 98.2 F 72 18 141/68 96 07/26/18 04:00 16 141/74 97 07/26/18 03:38 18 07/26/18 03:16 98.6 F 96 18 182/77 93 L 07/26/18 02:40 98.1 F 75 16 136/67 100 07/26/18 00:40 72 18 136/66 96 07/26/18 00:30 74 19 136/66 96 07/26/18 00:20 81 18 136/66 96 07/26/18 00:10 75 19 136/66 95 07/25/18 23:50 79 18 148/75 92 L 07/25/18 23:03 97.9 F 92 18 220/82 95 Intake and Output 07/25/18 07/26/18 07/26/18 22:59 06:59 14:59 Other: Voiding Method Toilet # Voids 1 Weight 164.1 kg - Constitutional General appearance: morbidly obese, no acute distress - EENT Eyes: anicteric sclerae, EOMI, PERRLA, poor dentition, normal appearance ENT: normal oropharynx Ears: bilateral: normal - Neck Neck: normal ROM Carotids: bilateral: upstroke normal, bruit absent Thyroid: bilateral: normal size - Respiratory Respiratory: bilateral: CTA - Cardiovascular Rhythm: regular Heart sounds: normal: S1, S2 - Gastrointestinal General gastrointestinal: distended, normal bowel sounds, soft - Integumentary Trace bilateral lower extremity edema Integumentary: decreased turgor, normal - Neurologic Neurologic: CNII-XII intact - Musculoskeletal Musculoskeletal: gait normal, generalized weakness, strength equal bilaterally - Psychiatric Psychiatric: A&O x's 3, appropriate affect, intact judgment & insight Results - Laboratory Findings CBC and BMP: 07/25/18 23:25 07/25/18 23:25 PT/INR, D-dimer PT 9.7 sec (9.0-12.0) 07/25/18 23:25 INR 1.0 (<1.2) 07/25/18 23:25 D-Dimer 0.67 mg/L FEU (<0.60) H 07/25/18 23:25 Abnormal lab findings: Abnormal Labs 07/25/18 07/25/18 07/25/18 23:25 23:25 23:25 WBC 13.0 H MCV 77.7 L MCH 23.8 L MCHC 30.6 L RDW 15.9 H Plt Count 470 H Neutrophils # 9.5 H D-Dimer 0.67 H Glucose 235 H POC Glucose (mg/dL) Magnesium 1.5 L Alkaline Phosphatase 153 H 07/26/18 07:11 WBC MCV MCH MCHC RDW Plt Count Neutrophils # D-Dimer Glucose POC Glucose (mg/dL) 231 H Magnesium Alkaline Phosphatase - Diagnostic Findings Chest x-ray: report reviewed, image reviewed CT scan - chest: report reviewed, image reviewed (Chest x-ray unremarkable computed tomography scan of the chest is negative for pulmonary embolism some prominent interstitium is noted likely related to some interstitial edema) Assessment and Plan Assessment: Uncontrolled hypertension with hypertensive emergency Pulmonary edema and congestive heart failure related to uncontrolled hypertension Chest pain of unclear etiology may be related to hypertensive heart disease, occult coronary artery disease cannot be excluded, cardiovascular services has been consulted Interstitial pneumonia/prominence with leukocytosis likely related to above but other occult etiologies like influenza and pneumonia cannot be excluded we'll check patient for influenza A and B by doing nasopharyngeal swab Sleep disorder breathing and sleep apnea Severe morbid obesity Plan: Gentle diuresis Continue hypertensive agents, and adjust dose accordingly Continue CPAP each night and when necessary during the day Check nasopharyngeal swab for influenza A and B Further recommendations pending plan of care as per clinical response of the patient Time with Patient: Greater than 30
[2018-07-26 09:12] LABS: Glucose,Whole Blood 269 mg/dL (75-99)
--- NOTE | 2018-07-26 09:48 | P.CRDCN ---
History of Present Illness Consult date: 07/26/18 Chief complaint: Chest pain History of present illness: This is a pleasant 54-year-old female patient who I follow in the office as an outpatient with a known history of diabetes, hypertension, dyslipidemia, obstructive sleep apnea, as well as obesity, presented to the hospital complaining of chest discomfort. The patient was in her usual state of health until this past Monday when she started experiencing burning sensation in the chest associated with shortness of breath. She did have multiple episodes of chest discomfort as burning sensation as well as shortness of breath. Beside that she noticed that her blood pressure has been out of control lately. She was seen by her primary care physician who did increase the dose of Cardizem for blood pressure control. Beside that she stated that she was not taking her Lasix for the last 5 days because she was running out of his. Also she states clearly that she was not been following a low sodium diet. The EKG showed sinus rhythm without any significant ST or T-wave abnormalities. The cardiac enzymes were checked and came in to be unremarkable. The rest of the workup came in to be unremarkable. Please note that the patient underwent heart catheterization in 2016 after abnormal stress test and that came in to be unremarkable without any evidence of severe coronary artery disease. E doubt that the patient's chest discomfort is related to severe underlying coronary artery disease and I do feel that her chest discomfort is secondary to uncontrolled hypertension. I am going to obtain an echocardiogram was Doppler to assess the systolic murmur on examination. Continue monitoring her blood pressure and heart rate overnight and over the next 24 hours and address and adjust the medication to get the blood pressure under control. Also I am getting the patient up and around to see if she is having any chest pain or chest discomfort. Past Medical History Past Medical History: Asthma, Diabetes Mellitus, GERD/Reflux, Hyperlipidemia, Hypertension, Osteoarthritis (OA), Sleep Apnea/CPAP/BIPAP, Thyroid Disorder Additional Past Medical History / Comment(s): PVC"PALPITATIONS, MIGARINES, LYMPHEDEMA -BILATERAL LEGS WEARS compression stockings History of Any Multi-Drug Resistant Organisms: None Reported Past Surgical History: Appendectomy, Section, Cholecystectomy, Heart Catheterization, Hysterectomy, Orthopedic Surgery Additional Past Surgical History / Comment(s): LT LEG/ANLKE- HARDWARE WAS RMOVED -A SMALL PEICE OF SCREW LEFT, COLONOSCOPY-BENIGN POLYPS Past Anesthesia/Blood Transfusion Reactions: Motion Sickness Additional Past Anesthesia/Blood Transfusion Reaction / Comment(s): CAN'T RIDE IN BACK SEAT OF CAR Smoking Status: Never smoker - Past Family History Father Family Medical History: Coronary Artery Disease (CAD), Diabetes Mellitus, Hypertension Additional Family Medical History / Comment(s): HAD TOTAL OCCLUSION LT GROIN - HAD SX Mother Family Medical History: Dementia, Diabetes Mellitus, Thyroid Disorder Medications and Allergies Home Medications Medication Instructions Recorded Confirmed Type Atorvastatin [Lipitor] 80 mg PO HS 01/26/15 07/26/18 History Citalopram Hydrobromide 40 mg PO DAILY 01/26/15 07/26/18 History [Citalopram HBr] Omeprazole [PriLOSEC] 20 mg PO DAILY 01/26/15 07/26/18 History Furosemide [Lasix] 40 mg PO DAILY 07/18/16 07/26/18 History Loratadine [Claritin] 10 mg PO HS 07/18/16 07/26/18 History Losartan Potassium [Cozaar] 100 mg PO DAILY 07/18/16 07/26/18 History Magnesium Oxide [Mag-Ox] 400 mg PO BID 07/18/16 07/26/18 History Montelukast [Singulair] 10 mg PO HS 07/18/16 07/26/18 History Aspirin 81 mg PO DAILY 01/18/18 07/26/18 History Gabapentin [Neurontin] 100 mg PO DAILY 01/18/18 07/26/18 History Insulin Glargine [Lantus] 30 unit SQ HS 01/18/18 07/26/18 History Insulin Glulisine [Apidra] 20 units SQ AC-TID 01/18/18 07/26/18 History amLODIPine [Norvasc] 5 mg PO BID 01/18/18 07/26/18 History metFORMIN HCL [Glucophage] 1,000 mg PO BID 01/18/18 07/26/18 History Gabapentin [Neurontin] 200 mg PO HS 03/02/18 07/26/18 History hydrALAZINE HCL [Apresoline] 100 mg PO DAILY 03/02/18 07/26/18 History Insulin Glulisine [Apidra] See Protocol SQ AC-TID 03/06/18 07/26/18 History Diltiazem HCl 60 mg PO BID 05/10/18 07/26/18 History Cholecalciferol (Vitamin D3) 4,000 unit PO DAILY 07/25/18 07/26/18 History [Vitamin D3] Levothyroxine Sodium [Synthroid] 200 mcg PO DAILY 07/25/18 07/26/18 History hydrALAZINE HCL [Apresoline] 100 mg PO HS 07/25/18 07/26/18 History Allergies Allergy/AdvReac Type Severity Reaction Status Date / Time adhesive tape Allergy Rash/Hives Verified 07/26/18 02:49 Iodinated Contrast- Oral and Allergy Anaphylaxis Verified 07/26/18 02:49 IV Dye iodine Allergy Anaphylaxis Verified 07/26/18 02:49 Penicillins Allergy Anaphylaxis Verified 07/26/18 02:49 shellfish derived [Shellfish] Allergy Anaphylaxis Verified 07/26/18 02:49 codeine AdvReac Nausea & Verified 07/26/18 02:49 Vomiting Physical Exam Vitals: Vital Signs Temp Pulse Pulse Resp BP BP Pulse Ox 07/26/18 07:30 98.2 F 72 18 141/68 96 07/26/18 04:00 16 141/74 97 07/26/18 03:38 18 07/26/18 03:16 98.6 F 96 18 182/77 93 L 07/26/18 02:40 98.1 F 75 16 136/67 100 07/26/18 00:40 72 18 136/66 96 07/26/18 00:30 74 19 136/66 96 07/26/18 00:20 81 18 136/66 96 07/26/18 00:10 75 19 136/66 95 07/25/18 23:50 79 18 148/75 92 L 07/25/18 23:03 97.9 F 92 18 220/82 95 Intake and Output 07/25/18 07/26/18 07/26/18 22:59 06:59 14:59 Other: Voiding Method Toilet # Voids 1 Weight 164.1 kg - Constitutional General appearance: no acute distress - Respiratory Respiratory: bilateral: CTA - Cardiovascular Rhythm: regular Heart sounds: normal: S1, S2 Abnormal Heart Sounds: systolic murmur Results 07/25/18 23:25 07/25/18 23:25 Cardiac Enzymes 07/25/18 07/25/18 07/26/18 Range/Units 23:25 23:25 05:24 AST 21 (14-36) U/L CK-MB (CK-2) 0.4 0.4 (0.0-2.4) ng/mL Troponin I <0.012 <0.012 (0.000-0.034) ng/mL Coagulation 07/25/18 Range/Units 23:25 PT 9.7 (9.0-12.0) sec APTT 24.6 (22.0-30.0) sec CBC 07/25/18 Range/Units 23:25 WBC 13.0 H (3.8-10.6) k/uL RBC 4.91 (3.80-5.40) m/uL Hgb 11.7 (11.4-16.0) gm/dL Hct 38.2 (34.0-46.0) % Plt Count 470 H (150-450) k/uL Comprehensive Metabolic Panel 07/25/18 Range/Units 23:25 Sodium 137 (137-145) mmol/L Potassium 3.7 (3.5-5.1) mmol/L Chloride 100 (98-107) mmol/L Carbon Dioxide 25 (22-30) mmol/L BUN 16 (7-17) mg/dL Creatinine 0.87 (0.52-1.04) mg/dL Glucose 235 H (74-99) mg/dL Calcium 9.5 (8.4-10.2) mg/dL AST 21 (14-36) U/L ALT 20 (9-52) U/L Alkaline Phosphatase 153 H (38-126) U/L Total Protein 7.5 (6.3-8.2) g/dL Albumin 4.0 (3.5-5.0) g/dL Current Medications Generic Name Dose Route Start Last Admin Trade Name Freq PRN Reason Stop Dose Admin Amlodipine Besylate 5 mg 07/26/18 21:00 Norvasc PO BID [facility] Aspirin 81 mg 07/27/18 09:00 Aspirin PO DAILY [facility] Atorvastatin Calcium 80 mg 07/26/18 21:00 Lipitor PO HS [facility] Cholecalciferol 4,000 unit 07/27/18 09:00 Vitamin D3 PO DAILY [facility] Citalopram Hydrobromide 40 mg 07/27/18 09:00 Celexa PO DAILY [facility] Diltiazem HCl 60 mg 07/26/18 21:00 Cardizem Oral PO BID [facility] Morphine Sulfate 4 mg 07/26/18 02:13 Morphine Sulfate (Inj) IV Q5M PRN Chest Pain Nitroglycerin 0.4 mg 07/26/18 02:13 Nitrostat SUBLINGUAL Q5M PRN Chest Pain Intake and Output 07/25/18 07/26/18 07/26/18 22:59 06:59 14:59 Other: Voiding Method Toilet # Voids 1 Weight 164.1 kg 07/25/18 23:25 07/25/18 23:25 Assessment and Plan Assessment: Assessment #1 uncontrolled hypertension #2 chest discomfort probably secondary to uncontrolled hypertension #3 known normal coronaries based on heart catheterization in 2016 #4 multiple risk factors including diabetes, hypertension, dyslipidemia Plan #1 continue watch the blood pressure and adjust the medication if we need to #2 obtain an echocardiogram was Doppler to assess the etiology behind her systolic murmur #3 monitor the patient for additional 24 hours #4 get the patient up and around #5 follow-up with the patient.
[2018-07-26 10:25] LABS: Anion Gap 11 mmol/L; Blood Urea Nitrogen 18 mg/dL (7-17); Calcium 9.6 mg/dL (8.4-10.2); Carbon Dioxide 25 mmol/L (22-30); Chloride 102 mmol/L (98-107); Glucose 218 mg/dL (74-99); Potassium 4.7 mmol/L (3.5-5.1); Sodium 138 mmol/L (137-145)
[2018-07-26 10:26] LABS: Basophils # (A) 0.1 k/uL (0-0.2); Basophils % (A) 0 %; Eosinophils # (A) 0.1 k/uL (0-0.7); Eosinophils % (A) 1 %; HCT 38.2 % (34.0-46.0); Hypochromasia Moderate; Lymphocytes % (A) 9 %; MCHC 31.4 g/dL (31.0-37.0); MCV 79.8 fL (80.0-100.0); Mean Platelet Volume 7.5; Monocytes # (A) 0.2 k/uL (0-1.0); Monocytes % (A) 2 %; Neutrophils # (A) 10.5 k/uL (1.3-7.7); Neutrophils % (A) 88 %; Platelet Count 429 k/uL (150-450); RBC 4.79 m/uL (3.80-5.40); RDW 15.9 % (11.5-15.5)
--- NOTE | 2018-07-26 10:53 | US ---
EXAMINATION TYPE: US carotid duplex BILAT DATE OF EXAM: 07/26/2018 COMPARISON: NONE CLINICAL HISTORY: bruit. chest pains per patient EXAM MEASUREMENTS: RIGHT: Peak Systolic Velocity (PSV) cm/sec ----- Right CCA: 86.0 ----- Right ICA: 94.4 ----- Right ECA: 163.6 ICA/CCA ratio: 1.1 RIGHT: End Diastole cm/sec ----- Right CCA: 8.1 ----- Right ICA: 18.8 ----- Right ECA: 18.3 LEFT: Peak Systolic Velocity (PSV) cm/sec ----- Left CCA: 94.2 ----- Left ICA: 73.8 ----- Left ECA: 160.9 ICA/CCA ratio: 0.8 LEFT: End Diastole cm/sec ----- Left CCA: 15.0 ----- Left ICA: 25.0 ----- Left ECA: 12.3 VERTEBRALS (direction of flow): Right Vertebral: Antegrade Left Vertebral: Antegrade Rhythm: Normal; respiratory interference noted, but normal rhythm noted with cessation of respiratio ns Mild intimal wall changes seen at bilateral ICA. Elevated PSV is present at proximal bilateral ECA wi thout wall changes seen. IMPRESSION: 1. Mild intimal wall thickening and small focal areas of plaque bilaterally with no significant hemod ynamic stenosis. Criteria for Assigning % of Stenosis / Diameter reduction (Estimation based on the indirect measurements of the internal carotid artery velocities (ICA PSV). 1. Normal (no stenosis)=ICA PSV < 125 cm/s: ratio < 2.0: ICA EDV<40 cm/s. 2. Less than 50% stenosis=ICA PSV < 125 cm/s: ratio < 2.0: ICA EDV<40 cm/s. 3. 50 to 69% stenosis=ICA PSV of 125 to 230 cm/s: ration 2.0 ? 4.0: ICA EDV 40-100 cm/s. 4. Greater than 70% stenosis to near occlusion= ICA PSV > 230 cm/s: ratio > 4.0: ICA EDV > 100 cm/s. 5. Near occlusion= ICA PSV velocities may be low or undetectable: variable ratio and ICA EDV. 6. Total occlusion=unable to detect flow.
[2018-07-26] MEDS: CHOLECALCIFEROL 1,000 UNIT TAB PO SCH (11:09)
[2018-07-26] MEDS: amLODIPine 5 MG TAB PO SCH ×2 (11:09→21:34)
[2018-07-26] MEDS: CITALOPRAM HYDROBROMIDE 20 MG TAB PO SCH (11:09)
[2018-07-26] MEDS: DILTIAZEM ORAL 60 MG TAB PO SCH ×2 (11:10→21:34)
[2018-07-26] MEDS: INSULIN ASPART 100 UNIT/ML 1 ML 10 ML VIAL SQ SCH ×5 (12:18→21:33)
[2018-07-26 12:20] LABS: Glucose,Whole Blood 312 mg/dL (75-99)
--- NOTE | 2018-07-26 12:23 | ECHOF ---
Referral Reason:murmur MEASUREMENTS -------- HEIGHT: 157.5 cm WEIGHT: 163.7 kg BP: 141/68 RVIDd: 2.7 cm (< 3.3) IVSd: 1.2 cm (0.6 - 1.1) LVIDd: 4.4 cm (3.9 - 5.3) LVPWd: 1.2 cm (0.6 - 1.1) IVSs: 1.7 cm LVIDs: 3.2 cm LVPWs: 1.5 cm LA Diam: 3.6 cm (2.7 - 3.8) LAESV Index (A-L): 27.79 ml/m Ao Diam: 3.2 cm (2.0 - 3.7) AV Cusp: 2.2 cm (1.5 - 2.6) MV EXCURSION: 14.577 mm (> 18.000) MV EF SLOPE: 45 mm/s (70 - 150) EPSS: 0.7 cm MV E Andrew: 1.01 m/s MV DecT: 251 ms MV A Andrew: 1.15 m/s MV E/A Ratio: 0.87 AV maxP.12 mmHg AV meanP.86 mmHg RAP: 5.00 mmHg RVSP: 24.64 mmHg FINDINGS -------- Sinus rhythm. This was a technically adequate study. The left ventricular size is normal. There is borderline concentric left ventricular hypertrophy. Overall left ventricular systolic function is normal with, an EF between 60 - 65 %. The right ventricle is normal in size. Normal LA size by volume 22+/-6 ml/m2. The right atrium is normal in size. There is mild aortic valve sclerosis. Peak/mean gradient across the Aortic Valve is 17.12mmHg / 8.8 6mmHg. The mitral valve is normal. Mild tricuspid regurgitation present. Right ventricular systolic pressure is normal at < 35 mmHg. Trace/mild (physiologic) pulmonic regurgitation. The aortic root size is normal. Normal inferior vena cava with normal inspiratory collapse consistent with estimated right atrial pre ssure of 5 mmHg. The inferior vena cava is mildly dilated. There is no pericardial effusion. CONCLUSIONS -------- 1. Sinus rhythm. 2. This was a technically adequate study. 3. The left ventricular size is normal. 4. There is borderline concentric left ventricular hypertrophy. 5. Overall left ventricular systolic function is normal with, an EF between 60 - 65 %. 6. The right ventricle is normal in size. 7. Normal LA size by volume 22+/-6 ml/m2. 8. The right atrium is normal in size. 9. There is mild aortic valve sclerosis. 10. Peak/mean gradient across the Aortic Valve is 17.12mmHg / 8.86mmHg. 11. The mitral valve is normal. 12. Mild tricuspid regurgitation present. 13. Right ventricular systolic pressure is normal at < 35 mmHg. 14. Trace/mild (physiologic) pulmonic regurgitation. 15. The aortic root size is normal. 16. Normal inferior vena cava with normal inspiratory collapse consistent with estimated right atrial pressure of 5 mmHg. 17. The inferior vena cava is mildly dilated. 18. There is no pericardial effusion. BUNDLE SORTER: Leeann Lugo RDCS
[2018-07-26 12:34] LABS: Creatine Kinase 51 U/L (30-135)
[2018-07-26 12:41] LABS: Creatine Kinase MB 0.4 ng/mL (0.0-2.4); Troponin I <0.012 ng/mL (0.000-0.034)
[2018-07-26 17:13] LABS: Glucose,Whole Blood 287 mg/dL (75-99)
[2018-07-26] MEDS: metFORMIN 500 MG TAB PO SCH (17:13)
[2018-07-26 18:57] LABS: Hemoglobin A1C 7.8 % (4.0-6.0)
[2018-07-26 19:16] LABS: Appearance,Urine Cloudy (Clear); Bacteria,Urine Few /hpf; Bilirubin,Urine Negative (Negative); Blood,Urine Negative (Negative); Color,Urine Yellow; Glucose,Urine (UA) 1+ (Negative); Ketones,Urine Negative (Negative); Leukocyte Esterase,Urine Negative (Negative); Mucus,Urine Occasional /hpf; Nitrite,Urine Negative (Negative); Protein,Urine Trace (Negative); RBC,Urine 1 /hpf (0-5); Specific Gravity,Urine 1.028 (1.001-1.035); Squamous Epithelial Cell,Urine 4 /hpf (0-4); Urobilinogen,Urine <2.0 mg/dL (<2.0)
[2018-07-26 20:38] LABS: Glucose,Whole Blood 155 mg/dL (75-99)
[2018-07-26] MEDS ORDERED: ATORVASTATIN 80 MG TAB PO SCH (21:00)
[2018-07-26] MEDS ORDERED: DILTIAZEM ORAL 60 MG TAB PO SCH (21:00)
[2018-07-26] MEDS ORDERED: amLODIPine 5 MG TAB PO SCH (21:00)
--- NOTE | 2018-07-26 21:18 | HP ---
HISTORY AND PHYSICAL DATE OF SERVICE: 07/26/2018 DATE OF ADMISSION: 07/25/2018 during the night. CHIEF COMPLAINT: The patient presented to the ER with the complaint of chest pain and numbness of the left upper extremity with precordial chest pain associated also with underlying dizziness and shortness of breath. Patient was found in the ER to have high blood pressure. HISTORY OF PRESENT ILLNESS: This 53-year-old white female presented to the emergency room physician for evaluation of chest pain during the [facility]. She was brought by a friend to the ER. The patient has morbid obesity and has been recently in the office with chest pain. We did an EKG, which did not show any changes. However, this time she stated that her pain was severe and also radiated to the left upper extremity and precordial area, and she was brought to the emergency room. The patient in 2015 had cardiac catheterization by Dr. Lord and I talked to him today. He stated that she had completely normal coronary vessels. However, patient had the above complaints. When she arrived in the hospital, she had an EKG and troponin. The EKG was normal; however, she had exertional dyspnea with morbid obesity. They checked her for PE and that was negative. They did a chest x-ray that showed presence of interstitial lung disease; however, she was seen subsequently in the ER observation by Dr. Karlos Patel of Pulmonary and he stated that it is normal; nothing abnormal for her. She has also substernal and epigastric pain, although moderate in severity, 6 out of 10, with a feeling of tightness and heaviness, which was intermittent and brought her to the emergency room. The patient has history of nausea or vomiting. In the emergency room, she was admitted to Observation because she did not want to go home with her situation. She was subsequently seen by Pulmonary, Dr. Karlos Patel, as well as the glue mill operator, Dr. Lord. Dr. Lord, because of her concern with her neck and bruits, ordered carotid duplex which found that she had minimal mild intimal wall thickening and a small focal area of plaque bilaterally; no significant hemodynamic stenosis. He also ordered an echocardiogram. The echocardiogram, which was done today 07/26/2018, indicated that she had sinus rhythm and borderline concentric left ventricular hypertrophy. She had an ejection fraction of 60% to 65% and right ventricle was normal size. Left atrium was by volume 22 mm2. She has mild aortic sclerosis. The peak and mean gradients across the aortic valve were 17.12 mmHg/8.86 mmHg. Her mitral valve was noted to be normal; mild tricuspid regurgitation and right ventricular systolic pressure less than 35. She had physiologic pulmonary regurgitation and normal inferior vena cava with normal inspiratory collapse consistent with estimated right atrial pressure of 5 mmHg. Inferior vena cava was mildly dilated and there was no pericardial effusion noted. Dr. Lord also discussed with me that he was suspicious of mild aortic stenosis. Otherwise, the patient's past medical history indicates severe obesity, and she was seen by Dr. Tate for a program to get bariatric surgery as well. In the ER, the patient had her medication which has been subsequently started. The patient has underlying obstructive sleep apnea. PAST MEDICAL HISTORY: 1. Diabetes mellitus. 2. Hypertension. 3. History of peripheral vascular disease. 4. Thyroid disorder. 5. Recommendation from Pulmonary, uncontrolled hypertension with hypertensive emergency, pulmonary edema and congestive heart failure; could be related to uncontrolled hypertension and the chest pain related to hypertensive heart disease. Occult coronary artery disease could not be excluded. 6. Interstitial pneumonia with leukocytosis above. 7. Severe obesity. 8. Sleep disorder. Dr. Karlos Patel stated continue the CPAP each night and check the nasopharyngeal swab for influenza A and B. MEDICATIONS: Patient has a large list of medications, includin. Atorvastatin 80 mg at bedtime. 2. Citalopram 40 mg daily with underlying depression. 3. Omeprazole 20 mg daily. 4. Furosemide 40 mg daily. 5. Loratadine for allergies 10 mg at bedtime. 6. Losartan 100 mg daily. 7. Magnesium oxide 400 mg twice a day. 8. Montelukast 10 mg at bedtime. 9. Aspirin 81 mg daily. 10.Neurontin 100 mg daily. 11.Insulin Lantus 30 mg at bedtime. 12.Apidra insulin short-acting 20 units before breakfast and supper and lunch t.i.d. 13.Amlodipine 5 mg b.i.d. 14.Gabapentin 200 mg at bedtime. 15.Hydralazine 100 mg daily. 16.Insulin to scale. 17.Diltiazem 60 mg twice a day. 18.Calciferol. 19.Vitamin D3 40,000 once daily. 20.Synthroid 200 mcg daily. 21.Hydralazine 50 mg at bedtime. ALLERGIES: 1. ADHESIVE TAPE. Rash and hives. 2. IODINATED CONTRAST MEDIA WITH ORAL OR IV causing anaphylaxis. 3. IODINE causes anaphylaxis. 4. PENICILLIN allergy, anaphylaxis. 5. SHELLFISH was causing anaphylaxis. 6. CODEINE cause nausea and vomiting. REVIEW OF SYSTEMS: NEUROPSYCHIATRY: She had history of depression but no history of stroke. CARDIOVASCULAR: History of previous cardiac catheterization which was normal. However, she complains of the chest pain. She had valvular heart disease and she had a good ejection fraction. She complains of chest pain and numbness in her left arm. CHEST: She felt short of breath and she has a history of obstructive sleep apnea and the asthma, but currently no wheezes. No rhonchi. History of lymphedema, migraine headache, and the lymphedema was bilateral. History of anxiety and depression. She never smoked. Her family history is father with diabetes mellitus and hypertension. He also has total occlusion of the left groin and left lower extremity. Mother with dementia, diabetes and thyroid disease. PHYSICAL EXAMINATION: On admission she had hypertension, accelerated, with blood pressure of 220/82, and on 07/25, 23 hours before midnight, her temperature was 97.9, her pulse rate was 92 and her oxygen was 95, respiratory rate 18. Subsequently the medication was started and she slightly improved gradually. On 07/26, blood pressure was 136/66. The oxygen was stable at 96. The persistent chest pain resulted laboratory was negative resulted in admission on observation status. Cardiology consultation as well. On the examination today, she had already the echocardiogram and the carotid duplex study which was essentially negative. The question was in regard of the valvular heart disease and as discussed with Dr. Lord we will hold her for tomorrow to see how the blood pressure is improving in general. On the current exam, her blood pressure is 148/59 and pulse 88, oxygenation 95 on room air. HEENT: The head was normocephalic, atraumatic. Pupils equal, reactive. Conjunctivae were pink. Sclerae were nonicteric. Neck was supple. No JVD. No thyromegaly, but she had a bruit on the left carotid. She had the carotid duplex study, which showed no hemodynamically significant stenosis; however, that could be associated with the aortic valve. The chest was clear to auscultation and percussion. HEART: PMI in the fifth intercostal space. Normal S1, S2. Outside the midclavicular line and she had a murmur on the base of the heart as well as the left sternal border, grade 2/6. The abdomen is morbidly obese. Positive bowel sounds. EXTREMITIES: No edema and positive pulses. Neurologically she is stable. No lateralizing sign. IMPRESSION: 1. Hypertension, accelerated, and hypertensive heart disease. 2. Chest pain with the laboratory indicating that on admission her troponin was normal. 3. Underlying leukocytosis, etiology unknown. We ordered urine analysis. It was 13 on 07/25/2018 and 12 on 07/26/2018. 4. Diabetes mellitus, type 2, on insulin; however, it is not well controlled and her sugar is between 312 and 235. We increased her medication for that adjustment. 5. Hypomagnesemia with the magnesium 1.5. 6. Mild macrocytosis. D-dimer was high and the patient had the PE protocol for the CT of the chest and it was negative. PLAN: We will be continuing the monitoring of the patient as the patient continues on heparin as well as pulmonary consultation as well as a cardiology consultation, which was done. The carotid testing was negative and the echocardiogram is mild aortic stenosis. So far the cardiac enzymes were normal. We will be monitoring her tomorrow and we will see if further treatment is needed. If she is stable and cleared by Cardiology for discharge, we will proceed. However, we will check the urinalysis and from the urinalysis we have to check any infection in the urine. MMODL / IJN: [id number] /
[2018-07-26] MEDS ORDERED: INSULIN DETEMIR 100 UNIT/ML 10 ML VIAL SQ SCH (21:45)
[2018-07-27 00:37] LABS: Cholesterol 158 mg/dL (<200); HDL Cholesterol 47 mg/dL (40-60); LDL Cholesterol,Calculated 94 mg/dL (0-99); Triglycerides 86 mg/dL (<150)
[2018-07-27 07:12] LABS: Glucose,Whole Blood 195 mg/dL (75-99)
[2018-07-27] MEDS: CHOLECALCIFEROL 1,000 UNIT TAB PO SCH (08:34)
[2018-07-27] MEDS: CITALOPRAM HYDROBROMIDE 20 MG TAB PO SCH (08:34)
[2018-07-27] MEDS: DILTIAZEM ORAL 60 MG TAB PO SCH (08:34)
[2018-07-27] MEDS: amLODIPine 5 MG TAB PO SCH (08:34)
[2018-07-27] MEDS: INSULIN ASPART 100 UNIT/ML 1 ML 10 ML VIAL SQ SCH ×4 (08:35→12:43)
[2018-07-27] MEDS: metFORMIN 500 MG TAB PO SCH (08:39)
[2018-07-27] MEDS ORDERED: CHOLECALCIFEROL 1,000 UNIT TAB PO SCH (09:00)
[2018-07-27] MEDS ORDERED: hydrALAZINE HCL 50 MG TAB PO SCH ×2 (09:00→21:00)
[2018-07-27] MEDS ORDERED: ASPIRIN 81 MG PO SCH (09:00)
[2018-07-27] MEDS ORDERED: LOSARTAN 50 MG TAB PO SCH (09:00)
[2018-07-27] MEDS ORDERED: FUROSEMIDE 40 MG TAB PO SCH (09:00)
[2018-07-27] MEDS ORDERED: ASPIRIN 325 MG TAB PO SCH (09:00)
[2018-07-27] MEDS ORDERED: CITALOPRAM HYDROBROMIDE 20 MG TAB PO SCH (09:00)
--- NOTE | 2018-07-27 09:03 | P.PN ---
Subjective Progress Note Date: 07/27/18 Principal diagnosis: Hypertensive urgency, Chest pain, COPD, morbid obesity, severe obstructive sleep apnea 07/27/2018, patient seen eval examined during the rounds clinically patient has been doing slightly better denies any chest pain denies any shortness of breath patient has been evaluated by cardiovascular services patient underwent a echocardiogram which revealed ejection fraction of 60-65%, 53-year-old morbidly obese female with history of sleep disorder breathing and sleep apnea on CPAP has been using intermittently, patient also has a history of chronic persistent asthma mild to moderate category has been on bronchodilator therapy however asthma lately has been in remission, patient is currently being evaluated for weight loss surgery, for the last 5-7 days she's been having issues associated with increased shortness of breath which has been paroxysmal some dry nonproductive cough is present as well intermittently patient has been having episode of chest tightness and pain and dizziness as well she was evaluated by primary care provider noted to have elevated blood pressure advised to adjust the blood pressure medicine, patient has been recommended to take Lasix lately for unclear reason she has multiple not been taking them last night she had the increase in shortness of breath felt dizzy also had substernal burning chest pain which is intermittent came into emergency department is being seen evaluated examined has been admitted into the hospital for avascular services consultation pending, on specific questioning she denies any loss of consciousness) but does have intermittent lightheadedness and dizziness which she attributes it to elevated blood pressure no weak as though, does have intermittent cough and shortness of breath denies any sputum production denies any night sweats fever or chills, chest pain is predominantly substernal with heaviness burning sensationin the radiation is present some correlation with elevation of blood pressure is noted as well with the symptoms, denies any bowel or bladder related problems, patient expresses that she did have gained close to 5-7 pounds in last few weeks Objective - Vital Signs Vital signs: Vital Signs Temp 98.8 F 07/27/18 04:00 Pulse 80 07/27/18 04:00 Resp 16 07/27/18 04:00 BP 176/62 07/27/18 04:00 Pulse Ox 93 L 07/27/18 04:00 Intake & Output 07/26/18 07/27/18 07/27/18 18:59 06:59 18:59 Intake Total 800 Balance 800 Intake: Oral 800 Other: Voiding Method Toilet Toilet # Voids 3 - Exam - Constitutional General appearance: morbidly obese, no acute distress - EENT Eyes: anicteric sclerae, EOMI, PERRLA, poor dentition, normal appearance ENT: normal oropharynx Ears: bilateral: normal - Neck Neck: normal ROM Carotids: bilateral: upstroke normal, bruit absent Thyroid: bilateral: normal size - Respiratory Respiratory: bilateral: CTA - Cardiovascular Rhythm: regular Heart sounds: normal: S1, S2 - Gastrointestinal General gastrointestinal: distended, normal bowel sounds, soft - Integumentary Trace bilateral lower extremity edema Integumentary: decreased turgor, normal - Neurologic Neurologic: CNII-XII intact - Musculoskeletal Musculoskeletal: gait normal, generalized weakness, strength equal bilaterally - Psychiatric Psychiatric: A&O x's 3, appropriate affect, intact judgment & insight - Labs CBC & Chem 7: 07/26/18 05:24 07/26/18 05:24 Labs: Abnormal Lab Results - Last 24 Hours (Table) 07/26/18 07/26/18 07/26/18 Range/Units 05:24 05:24 05:24 WBC 12.0 H (3.8-10.6) k/uL MCV 79.8 L (80.0-100.0) fL RDW 15.9 H (11.5-15.5) % Neutrophils # 10.5 H (1.3-7.7) k/uL BUN 18 H (7-17) mg/dL Glucose 218 H (74-99) mg/dL POC Glucose (mg/dL) (75-99) mg/dL Hemoglobin A1c 7.8 H (4.0-6.0) % Urine Appearance (Clear) Urine Protein (Negative) Urine Glucose (UA) (Negative) Urine Bacteria (None) /hpf Urine Mucus (None) /hpf 07/26/18 07/26/18 07/26/18 Range/Units 09:09 11:52 17:09 WBC (3.8-10.6) k/uL MCV (80.0-100.0) fL RDW (11.5-15.5) % Neutrophils # (1.3-7.7) k/uL BUN (7-17) mg/dL Glucose (74-99) mg/dL POC Glucose (mg/dL) 269 H 312 H 287 H (75-99) mg/dL Hemoglobin A1c (4.0-6.0) % Urine Appearance (Clear) Urine Protein (Negative) Urine Glucose (UA) (Negative) Urine Bacteria (None) /hpf Urine Mucus (None) /hpf 07/26/18 07/26/18 07/27/18 Range/Units 17:35 20:34 06:45 WBC (3.8-10.6) k/uL MCV (80.0-100.0) fL RDW (11.5-15.5) % Neutrophils # (1.3-7.7) k/uL BUN (7-17) mg/dL Glucose (74-99) mg/dL POC Glucose (mg/dL) 155 H 195 H (75-99) mg/dL Hemoglobin A1c (4.0-6.0) % Urine Appearance Cloudy H (Clear) Urine Protein Trace H (Negative) Urine Glucose (UA) 1+ H (Negative) Urine Bacteria Few H (None) /hpf Urine Mucus Occasional H (None) /hpf Assessment and Plan Assessment: Uncontrolled hypertension with hypertensive emergency Pulmonary edema and congestive heart failure related to uncontrolled hypertension Chest pain of unclear etiology may be related to hypertensive heart disease, occult coronary artery disease cannot be excluded, cardiovascular services has been consulted Interstitial pneumonia/prominence with leukocytosis likely related to above but other occult etiologies like influenza and pneumonia cannot be excluded we'll check patient for influenza A and B by doing nasopharyngeal swab Sleep disorder breathing and sleep apnea Severe morbid obesity Plan: Gentle diuresis Continue hypertensive agents, and adjust dose accordingly Continue CPAP each night and when necessary during the day Check nasopharyngeal swab for influenza A and B, noted to be negative Further recommendations pending plan of care as per clinical response of the patient Time with Patient: Greater than 30
[2018-07-27 09:10] VITALS: RESP 18
[2018-07-27 12:02] LABS: Glucose,Whole Blood 124 mg/dL (75-99)
[2018-07-27 12:25] VITALS: BP 107/63; PULSE 71; TEMP 98.3
--- NOTE | 2018-07-27 13:09 | P.PN ---
Subjective This is a pleasant 54-year-old female past medical history significant for hypertension, diabetes mellitus, dyslipidemia, obstructive sleep apnea and obesity. She follows with Dr. Lord in the office. She is currently being treated for uncontrolled hypertension. Currently maintained on amlodipine 5 mg twice a day, diltiazem 60 mg twice a day, hydralazine 100 mg twice a day, losartan 100 mg daily. Blood pressure 107/63 heart rate 71 afebrile maintaining oxygen saturation on room air. Echocardiogram obtained reveals preserved left ventricular systolic function with ejection fraction 60- 65% with mild aortic valve sclerosis, mean gradient across the valve 8.8 mmHg and mild TR. She states she has been up ambulating in the halls and has had no further symptoms of chest discomfort. Telemetry tracings have been unremarkable. GENERAL: Well-appearing, well-nourished and in no acute distress. Obese. NECK: Supple without JVD or thyromegaly. LUNGS: Breath sounds clear to auscultation bilaterally. Respiration equal and unlabored. No wheezes, rales or rhonchi. HEART: Regular rate and rhythm with systolic ejection murmur at the base, no rubs or gallops. S1 and S2 heard. EXTREMITIES: Normal range of motion, no edema. No clubbing or cyanosis. Peripheral pulses intact. ASSESSMENT Hypertension, uncontrolled Chest pain, atypical. An acute coronary event has been ruled out. Recent cardiac catheterization revealed normal coronary arteries. Chest discomfort secondary to uncontrolled hypertension Aortic stenosis, mean gradient 8.8 mmHg. Dyslipidemia Diabetes mellitus Morbid obesity, BMI 66 PLAN Her home antihypertensive medications have been resumed. She has been counseled on proper compliance with medications as well as not letting her medications run out. Advised the patient to obtain blood pressure monitoring cuff at home and check her blood pressure daily over the next 2 weeks. She is to keep a journal of this to take with her to the office when she sees Dr. Lord in 2-3 weeks. Recommend low-sodium diet. She is stable from a cardiac perspective. Nurse Practitioner note has been reviewed, I agree with a documented findings and plan of care. Patient was seen and examined. Objective - Vital Signs Vital signs: Vital Signs Temp 98.3 F 07/27/18 12:00 Pulse 71 07/27/18 12:00 Resp 18 07/27/18 12:00 BP 107/63 07/27/18 12:00 Pulse Ox 96 07/27/18 12:00 Intake & Output 07/26/18 07/27/18 07/27/18 18:59 06:59 18:59 Intake Total 800 Balance 800 Intake: Oral 800 Other: Voiding Method Toilet Toilet Toilet # Voids 3 - Labs CBC & Chem 7: 07/26/18 05:24 07/26/18 05:24 Labs: Abnormal Lab Results - Last 24 Hours (Table) 07/26/18 07/26/18 07/26/18 Range/Units 05:24 17:09 17:35 POC Glucose (mg/dL) 287 H (75-99) mg/dL Hemoglobin A1c 7.8 H (4.0-6.0) % Urine Appearance Cloudy H (Clear) Urine Protein Trace H (Negative) Urine Glucose (UA) 1+ H (Negative) Urine Bacteria Few H (None) /hpf Urine Mucus Occasional H (None) /hpf 07/26/18 07/27/18 07/27/18 Range/Units 20:34 06:45 11:43 POC Glucose (mg/dL) 155 H 195 H 124 H (75-99) mg/dL Hemoglobin A1c (4.0-6.0) % Urine Appearance (Clear) Urine Protein (Negative) Urine Glucose (UA) (Negative) Urine Bacteria (None) /hpf Urine Mucus (None) /hpf
--- NOTE | 2018-07-27 14:50 | P.DS ---
Providers Date of admission: 07/26/18 02:13 Expected date of discharge: 07/27/18 Attending physician: Chu Winchester Consults: 07/26/18 02:13 Consult Physician Urgent Consulting Provider: Petra Galeas Consult Reason/Comments: cp Do you want consulting provider notified?: Yes Pulmonary Dr. Karols Patel Primary care physician: Chu Winchester Discharge summary from observation. Final assessment #1 hypertension uncontrolled #2 chest pain atypical, coronary artery has been ruled out she had a recent cardiac catheterization with normal coronary arteries done by Dr. Jacobo. #3 orthostatic stenosis with a mean gradient 8.8 mmHg. #4 dyslipidemia. #5 diabetes mellitus controlled on discharge #6 morbid obesity. Patient presentation to the ER with the chest pain that is dictation of the pain to the left arm and precordial pressure. Patient monitored and consultation with cardiology. As well as the pulmonary and seen by both of them and continue to be monitored for hypertension and resuming her medication for diabetes and to continue her program for weight loss. Hospital course as patient admitted under observation status and monitored adjusting all her medication by the cardiology., From Dr. Karlos Patel also did see her and with no farther added treatment and the she had history of asthma and the but was not symptomatic. Patient today released by the cardiology and to follow-up with Dr. Jacobo and ptosis 3 weeks. And pulmonary alba she was cleared as well and continue to follow up in the primary care Dr. Chambers and recommendation of low-salt diet. And keep short-haul for her blood pressure. She also on insulin dependent and to continue the INSULIN. On discharge her temperature 98.3 pulse 71 respiratory rate 18 blood pressure 107/63 with the saturation on room air 96. Patient is conscious alert oriented 3 and ambulatory. HEENT was negative and neck was supple and no JVD no thyromegaly no lymphadenopathy to indicate any other pathology chest was clear to auscultation and percussion and the heart was compensated with regular sinus rhythm. The abdomen is obese positive bowel sounds and no organomegaly enlargement extremities no edema and positive pulses. And she is neuropsychiatry stable and able to ambulate. The assessment Patient is stable general condition and cleared by cardiology for discharge is end of dictation by Dr. Reyes Blevins [facility] on 07/27/2018 thank you Patient Condition at Discharge: Undetermined Plan - Discharge Summary New Discharge Prescriptions: No Action RX: Citalopram Hydrobromide [Citalopram HBr] 40 mg PO DAILY RX: Atorvastatin [Lipitor] 80 mg PO HS RX: Omeprazole [PriLOSEC] 20 mg PO DAILY RX: Loratadine [Claritin] 10 mg PO HS RX: Furosemide [Lasix] 40 mg PO DAILY Montelukast [Singulair] 10 mg PO HS Magnesium Oxide [Mag-Ox] 400 mg PO BID Losartan Potassium [Cozaar] 100 mg PO DAILY RX: metFORMIN HCL [Glucophage] 1,000 mg PO BID RX: Aspirin 81 mg PO DAILY Insulin Glargine [Lantus] 30 unit SQ HS Insulin Glulisine [Apidra] 20 units SQ AC-TID RX: amLODIPine [Norvasc] 5 mg PO BID RX: Gabapentin [Neurontin] 100 mg PO DAILY Gabapentin [Neurontin] 200 mg PO HS hydrALAZINE HCL [Apresoline] 100 mg PO DAILY Insulin Glulisine [Apidra] See Protocol SQ AC-TID RX: Diltiazem HCl 60 mg PO BID Levothyroxine Sodium [Synthroid] 200 mcg PO DAILY hydrALAZINE HCL [Apresoline] 100 mg PO HS Cholecalciferol (Vitamin D3) [Vitamin D3] 4,000 unit PO DAILY Discharge Medication List RX: Atorvastatin [Lipitor] 80 mg PO HS 01/26/15 [History] RX: Citalopram Hydrobromide [Citalopram HBr] 40 mg PO DAILY 01/26/15 [History] RX: Omeprazole [PriLOSEC] 20 mg PO DAILY 01/26/15 [History] Losartan Potassium [Cozaar] 100 mg PO DAILY 07/18/16 [History] Magnesium Oxide [Mag-Ox] 400 mg PO BID 07/18/16 [History] Montelukast [Singulair] 10 mg PO HS 07/18/16 [History] RX: Furosemide [Lasix] 40 mg PO DAILY 07/18/16 [History] RX: Loratadine [Claritin] 10 mg PO HS 07/18/16 [History] Insulin Glargine [Lantus] 30 unit SQ HS 01/18/18 [History] Insulin Glulisine [Apidra] 20 units SQ AC-TID 01/18/18 [History] RX: Aspirin 81 mg PO DAILY 01/18/18 [History] RX: Gabapentin [Neurontin] 100 mg PO DAILY 01/18/18 [History] RX: amLODIPine [Norvasc] 5 mg PO BID 01/18/18 [History] RX: metFORMIN HCL [Glucophage] 1,000 mg PO BID 01/18/18 [History] Gabapentin [Neurontin] 200 mg PO HS 03/02/18 [History] hydrALAZINE HCL [Apresoline] 100 mg PO DAILY 03/02/18 [History] Insulin Glulisine [Apidra] See Protocol SQ AC-TID 03/06/18 [History] RX: Diltiazem HCl 60 mg PO BID 05/10/18 [History] Cholecalciferol (Vitamin D3) [Vitamin D3] 4,000 unit PO DAILY 07/25/18 [History] Levothyroxine Sodium [Synthroid] 200 mcg PO DAILY 07/25/18 [History] hydrALAZINE HCL [Apresoline] 100 mg PO HS 07/25/18 [History] Follow up Appointment(s)/Referral(s): Jamaal Lord MD [STAFF PHYSICIAN] - 2 Weeks (Acquire blood pressure cuff and monitor daily for the next two weeks. Bring recordings to office visit. ) Karlos Patel MD [STAFF PHYSICIAN] - 1 Week Chu Winchester MD [Primary Care Provider] - 1-2 days Patient Instructions/Handouts: How to Take a Blood Pressure (DC), Chronic Hypertension (DC), Low-Sodium Diet (DC)
== END 2018-07-27 15:30 | disposition home or self-care (01) ==
LOC: EC 23:01 → 1SOBS 07-26 02:13
PROVIDERS: ADMIT Internal Medicine; ATTEND Internal Medicine
DX: R07.89 Other chest pain (principal); I16.1 Hypertensive emergency; E83.42 Hypomagnesemia; G47.33 Obstructive sleep apnea (adult) (pediatric); Z99.89 Dependence on other enabling machines and devices; I11.0 Hypertensive heart disease with heart failure; I50.9 Heart failure, unspecified; D75.89 Other specified diseases of blood and blood-forming organs; R79.89 Other specified abnormal findings of blood chemistry; I35.0 Nonrheumatic aortic (valve) stenosis; J84.9 Interstitial pulmonary disease, unspecified; E78.5 Hyperlipidemia, unspecified; E66.01 Morbid (severe) obesity due to excess calories; Z68.44 Body mass index [BMI] 60.0-69.9, adult; J44.9 Chronic obstructive pulmonary disease, unspecified; J45.40 Moderate persistent asthma, uncomplicated; E11.51 Type 2 diabetes mellitus with diabetic peripheral angiopathy without gangrene; K21.9 Gastro-esophageal reflux disease without esophagitis; M19.90 Unspecified osteoarthritis, unspecified site; E07.9 Disorder of thyroid, unspecified; G43.909 Migraine, unspecified, not intractable, without status migrainosus; F41.9 Anxiety disorder, unspecified; F32.9 Major depressive disorder, single episode, unspecified; I49.3 Ventricular premature depolarization; I89.0 Lymphedema, not elsewhere classified; Z79.82 Long term (current) use of aspirin; Z79.4 Long term (current) use of insulin; Z79.890 Hormone replacement therapy; Z79.899 Other long term (current) drug therapy; Z91.041 Radiographic dye allergy status; Z88.5 Allergy status to narcotic agent; Z88.0 Allergy status to penicillin; Z91.013 Allergy to seafood; Z91.048 Other nonmedicinal substance allergy status; Z90.710 Acquired absence of both cervix and uterus; Z90.49 Acquired absence of other specified parts of digestive tract; Z90.89 Acquired absence of other organs; Z86.010 Personal history of colon polyps; Z82.49 Family history of ischemic heart disease and other diseases of the circulatory system; Z83.49 Family history of other endocrine, nutritional and metabolic diseases; Z81.8 Family history of other mental and behavioral disorders; Z83.3 Family history of diabetes mellitus
CPT/HCPCS: 96361 ×3; 96375 ×2; 96374; 99285; 36415; 93005; 93306; 85379; 83880; 80061; 80053; 80048; 82550 ×2; 82553 ×2; 83690; 83735; 84484 ×2; 85025 ×2; 85610; 85730; 81001; 87502; 83036; 71046; 93880; 71275; G0378 ×2; J2270; J1200; J2930; Q9967

== ENCOUNTER → 2019-02-18 | Outpatient (CLI) | payer OTHER ==
--- NOTE | 2019-02-20 09:57 | MM ---
Reason for exam: screening (asymptomatic). Last mammogram was performed 1 year and 2 months ago. History: Patient is postmenopausal. Benign stereotactic core biopsy of the left breast, 2017. Physical Findings: A clinical breast exam by your physician is recommended on an annual basis and results should be correlated with mammographic findings. MG Screening Mammo w CAD Bilateral CC and MLO view(s) were taken. Prior study comparison: December 16, 2017, bilateral MG screening mammo w CAD. August 01, 2016, mammogram, performed at [facility]. The breast tissue is almost entirely fat. Finding: There are typically benign vascular, round calcifications in both breasts. Chronic nodularity in the left breast. No discrete abnormality. ASSESSMENT: Benign, BI-RAD 2 RECOMMENDATION: Routine screening mammogram of both breasts in 1 year.
== END | disposition home or self-care (01) ==
LOC: RADMAMWWP 09:49
PROVIDERS: ATTEND Internal Medicine
DX: Z12.31 Encounter for screening mammogram for malignant neoplasm of breast (principal)
CPT/HCPCS: 77067

== ENCOUNTER 2020-08-27 19:31 | Emergency (ER) | payer OTHER ==
[2020-08-27 19:38] VITALS: RESP 18; TEMP 97.9
[2020-08-27 20:31] LABS: Basophils # (A) 0.1 k/uL (0-0.2); Basophils % (A) 1 %; Eosinophils # (A) 0.3 k/uL (0-0.7); Eosinophils % (A) 4 %; HGB 12.3 gm/dL (11.4-16.0); Lymphocytes # (A) 1.6 k/uL (1.0-4.8); Lymphocytes % (A) 16 %; MCH 26.6 pg (25.0-35.0); MCHC 32.5 g/dL (31.0-37.0); MCV 81.8 fL (80.0-100.0); Mean Platelet Volume 6.9; Monocytes # (A) 0.4 k/uL (0-1.0); Monocytes % (A) 4 %; Neutrophils # (A) 7.2 k/uL (1.3-7.7); Neutrophils % (A) 74 %; Platelet Count 368 k/uL (150-450); RBC 4.64 m/uL (3.80-5.40); RDW 15.2 % (11.5-15.5); WBC 9.7 k/uL (3.8-10.6)
[2020-08-27 20:36] LABS: INR 0.9 (<1.2); Partial Thromboplastin Time 24.4 sec (22.0-30.0); Prothrombin Time 9.7 sec (9.0-12.0)
[2020-08-27 20:40] LABS: ALT 19 U/L (4-34); AST 29 U/L (14-36); African American GFR (CKD) >90 (>60 ml/min/1.73 sqM); Albumin 3.9 g/dL (3.5-5.0); Alkaline Phosphatase 150 U/L (38-126); Anion Gap 6 mmol/L; Blood Urea Nitrogen 19 mg/dL (7-17); Calcium 9.2 mg/dL (8.4-10.2); Carbon Dioxide 29 mmol/L (22-30); Chloride 104 mmol/L (98-107); Glucose 179 mg/dL (74-99); Magnesium 1.8 mg/dL (1.6-2.3); Non-African American GFR(CKD) 78 (>60 ml/min/1.73 sqM); Potassium 3.8 mmol/L (3.5-5.1); Sodium 139 mmol/L (137-145); Total Bilirubin 0.6 mg/dL (0.2-1.3); Total Protein 7.4 g/dL (6.3-8.2)
--- NOTE | 2020-08-27 20:40 | ED ---
General Adult HPI - General Chief complaint: Recheck/Abnormal Lab/Rx Stated complaint: High Blood Pressure Time Seen by Provider: 08/27/20 19:35 Source: patient Mode of arrival: wheelchair Limitations: no limitations - History of Present Illness Initial comments: Patient is a 55-year-old female past history of diabetes, hypertension, hyperlipidemia, obstructive sleep apnea who presents to the emergency department with reported head blood pressure. Patient states that for the past 2 weeks she has had issues with shortness of breath and high blood pressure. She is normally managed by Dr. Lord and Dr. Patel. She was in Dr. Patel's office today in order to renew her oxygen order. States she infrequently needs to wear oxygen however feels that recently it has become more frequent. Her high blood pressure medications were also changed by Dr. Lord - she was switched from losartan to valsartan. Her amlodipine was changed from am to pm. States that since these medications were changed but her blood pressure has been breathing much higher. She takes it every day at home. She spoke with Dr. Bernal in regards to the higher blood pressures however he thought it was up to Dr. Lord to adjust since he was the one who made the medication changes. Patient does not understand why her medications were changed. She does not believe that she is doing well on this new regimen. Tonight she noted her blood pressure to be high. She [facility] who told her to take a half of her hydralazine and is remained high to come into the emergency room. States that she took her full nighttime dose of hydralazine and the blood pressure remained high to go into the ER. States that Dr. patel/dr bernal is aware of her shortness of breath and chest pressure. She was placed on a Z-Onesimo for possible sinusitis with bronchitis however her prescription is not ready yet. States she is scheduled to olive picker tomorrow. She admits to sinus pressure and congestion. Denies cough. No sick contacts with similar symptoms. Denies previous history of coronary disease. No nausea or vomiting. Denies ripping or tearing physician to her back. No lower extremity edema. No history of heart failure. No other alleviating, precipitating or modifying factors - Related Data Home Medications Medication Instructions Recorded Confirmed Atorvastatin [Lipitor] 80 mg PO HS 01/26/15 08/27/20 Citalopram Hydrobromide 40 mg PO DAILY 01/26/15 08/27/20 [Citalopram HBr] Omeprazole [PriLOSEC] 20 mg PO DAILY 01/26/15 08/27/20 Furosemide [Lasix] 60 mg PO DAILY 07/18/16 08/27/20 Magnesium Oxide [Mag-Ox] 400 mg PO BID 07/18/16 08/27/20 Montelukast [Singulair] 10 mg PO HS 07/18/16 08/27/20 Levothyroxine Sodium [Synthroid] 200 mcg PO DAILY@0700 07/25/18 08/27/20 Ferrous Sulfate [Feosol] 325 mg PO BID 02/25/19 08/27/20 Levothyroxine Sodium [Synthroid] 25 mcg PO SUTUTHSA@0700 02/25/19 08/27/20 amLODIPine [Norvasc] 10 mg PO DAILY 02/25/19 08/27/20 Aspirin EC [Ecotrin Low Dose] 81 mg PO HS 08/27/20 08/27/20 Carvedilol [Coreg] 12.5 mg PO BID 08/27/20 08/27/20 Cholecalciferol (Vitamin D3) 125 mcg PO DAILY 08/27/20 08/27/20 [Vitamin D3] Fexofenadine HCl 180 mg PO DAILY 08/27/20 08/27/20 Fluticasone Nasal [place] [Flonase 1 - 2 spr EA NOSTRIL BID PRN 08/27/20 08/27/20 Nasal [place]] Gabapentin [Neurontin] 300 mg PO BID 08/27/20 08/27/20 Insulin Aspart [NovoLOG Flexpen] 30 units SQ AC-TID 08/27/20 08/27/20 Insulin Glargine,Hum.rec.anlog 30 unit SQ HS 08/27/20 08/27/20 [Lantus Solostar] Valsartan 320 mg PO HS 08/27/20 08/27/20 hydrALAZINE HCL [Apresoline] 100 mg PO TID 08/27/20 08/27/20 metFORMIN HCL 1,000 mg PO BID 08/27/20 08/27/20 Allergies Allergy/AdvReac Type Severity Reaction Status Date / Time adhesive tape Allergy Rash/Hives Verified 08/27/20 20:18 Iodinated Contrast Media Allergy Anaphylaxis Verified 08/27/20 20:18 [Iodinated Contrast- Oral and IV Dye] iodine Allergy Anaphylaxis Verified 08/27/20 20:18 Penicillins Allergy Anaphylaxis Verified 08/27/20 20:18 shellfish derived [Shellfish] Allergy Anaphylaxis Verified 08/27/20 20:18 codeine AdvReac Nausea & Verified 08/27/20 20:18 Vomiting Review of Systems ROS Statement: Those systems with pertinent positive or pertinent negative responses have been documented in the HPI. ROS Other: All systems not noted in ROS Statement are negative. Past Medical History Past Medical History: Asthma, Diabetes Mellitus, GERD/Reflux, Hyperlipidemia, Hypertension, Osteoarthritis (OA), Sleep Apnea/CPAP/BIPAP, Thyroid Disorder Additional Past Medical History / Comment(s): PVC"PALPITATIONS, MIGARINES, LYM PHEDEMA -BILATERAL LEGS WEARS compression stockings History of Any Multi-Drug Resistant Organisms: None Reported Past Surgical History: Appendectomy, Section, Cholecystectomy, Heart Catheterization, Hysterectomy, Orthopedic Surgery Additional Past Surgical History / Comment(s): LT LEG/ANLKE- HARDWARE WAS RMOVED-A SMALL PEICE OF SCREW LEFT, COLONOSCOPY-BENIGN POLYPS Past Anesthesia/Blood Transfusion Reactions: Motion Sickness Additional Past Anesthesia/Blood Transfusion Reaction / Comment(s): CAN'T RIDE IN BACK SEAT OF CAR Past Psychological History: Anxiety, Depression Smoking Status: Never smoker Past Alcohol Use History: None Reported Past Drug Use History: None Reported - Past Family History Father Family Medical History: Coronary Artery Disease (CAD), Diabetes Mellitus, Hypertension Additional Family Medical History / Comment(s): HAD TOTAL OCCLUSION LT GROIN - HAD SX Mother Family Medical History: Dementia, Diabetes Mellitus, Thyroid Disorder General Exam Limitations: no limitations Course Vital Signs 08/27/20 08/27/20 19:33 20:44 Temperature 97.9 F Pulse Rate 72 64 Respiratory 18 18 Rate Blood Pressure 199/85 169/85 O2 Sat by Pulse 97 98 Oximetry EKG Findings - EKG Comments: EKG Findings:: EKG demonstrates normal sinus rhythm with a ventricular rate of 6 6. MO interval 142. QRS 92. QTC of 440. No acute ST segment elevations or depressions concerning for ischemic changes Medical Decision Making - Medical Decision Making Upon arrival the patient was placed into room 2. A thorough history and p hysical exam is performed. Blood pressure is obtained and noted to be 199/85. Laboratory studies are conducted and the patient went for chest x-ray. Laboratory studies demonstrated a glucose of 179. Coronavirus is negative. Creatinine 0.85. Troponin of less than 0.012 chest x-ray demonstrates increased pulmonary interstitial density compared to old exam. Could be acute mild interstitial pneumonia. Results are discussed with the patient. She does have a prescription for Z-Onesimo which is ready at the pharmacy. I did recommend giving her dose tonight however the patient refused stating she will just olive picker her prescription the morning. Primary care doctor and dining services director are both aware that the patient is having issues with her blood pressure. She feels comfortable being discharged home at this time and will call both within the morning in order to straighten out her blood pressure medication regimen. States that her hydralazine is scheduled 3 times daily however reports she normally only takes it twice daily. I did inform the patient that if it is prescribed 3 times daily that she should be taking it as such. The patient's oxygen saturations have been 98% without any supplemental oxygen. Patient is to start antibiotics tomorrow. I'll make a follow-up appointment for Dr. Patel as I do recommend that he take a look at her chest x-ray. If the patient has any new or worsening symptoms she should return to the emergency room. The patient is discharged home in stable condition - Lab Data Result diagrams: 08/27/20 20:19 08/27/20 20:19 Lab Results 08/27/20 08/27/20 08/27/20 Range/Units 20:19 20:19 20:19 WBC 9.7 (3.8-10.6) k/uL RBC 4.64 (3.80-5.40) m/uL Hgb 12.3 (11.4-16.0) gm/dL Hct 38.0 (34.0-46.0) % MCV 81.8 (80.0-100.0) fL MCH 26.6 (25.0-35.0) pg MCHC 32.5 (31.0-37.0) g/dL RDW 15.2 (11.5-15.5) % Plt Count 368 (150-450) k/uL MPV 6.9 Neutrophils % 74 % Lymphocytes % 16 % Monocytes % 4 % Eosinophils % 4 % Basophils % 1 % Neutrophils # 7.2 (1.3-7.7) k/uL Lymphocytes # 1.6 (1.0-4.8) k/uL Monocytes # 0.4 (0-1.0) k/uL Eosinophils # 0.3 (0-0.7) k/uL Basophils # 0.1 (0-0.2) k/uL PT 9.7 (9.0-12.0) sec INR 0.9 (<1.2) APTT 24.4 (22.0-30.0) sec Sodium 139 (137-145) mmol/L Potassium 3.8 (3.5-5.1) mmol/L Chloride 104 (98-107) mmol/L Carbon Dioxide 29 (22-30) mmol/L Anion Gap 6 mmol/L BUN 19 H (7-17) mg/dL Creatinine 0.85 (0.52-1.04) mg/dL Est GFR (CKD-EPI)AfAm >90 (>60 ml/min/1.73 sqM) Est GFR (CKD-EPI)NonAf 78 (>60 ml/min/1.73 sqM) Glucose 179 H (74-99) mg/dL Calcium 9.2 (8.4-10.2) mg/dL Magnesium 1.8 (1.6-2.3) mg/dL Total Bilirubin 0.6 (0.2-1.3) mg/dL AST 29 (14-36) U/L ALT 19 (4-34) U/L Alkaline Phosphatase 150 H (38-126) U/L Troponin I (0.000-0.034) ng/mL NT-Pro-B Natriuret Pep pg/mL Total Protein 7.4 (6.3-8.2) g/dL Albumin 3.9 (3.5-5.0) g/dL Coronavirus (PCR) (Not Detectd) 08/27/20 08/27/20 08/27/20 Range/Units 20:19 20:19 20:29 WBC (3.8-10.6) k/uL RBC (3.80-5.40) m/uL Hgb (11.4-16.0) gm/dL Hct (34.0-46.0) % MCV (80.0-100.0) fL MCH (25.0-35.0) pg MCHC (31.0-37.0) g/dL RDW (11.5-15.5) % Plt Count (150-450) k/uL MPV Neutrophils % % Lymphocytes % % Monocytes % % Eosinophils % % Basophils % % Neutrophils # (1.3-7.7) k/uL Lymphocytes # (1.0-4.8) k/uL Monocytes # (0-1.0) k/uL Eosinophils # (0-0.7) k/uL Basophils # (0-0.2) k/uL PT (9.0-12.0) sec INR (<1.2) APTT (22.0-30.0) sec Sodium (137-145) mmol/L Potassium (3.5-5.1) mmol/L Chloride (98-107) mmol/L Carbon Dioxide (22-30) mmol/L Anion Gap mmol/L BUN (7-17) mg/dL Creatinine (0.52-1.04) mg/dL Est GFR (CKD-EPI)AfAm (>60 ml/min/1.73 sqM) Est GFR (CKD-EPI)NonAf (>60 ml/min/1.73 sqM) Glucose (74-99) mg/dL Calcium (8.4-10.2) mg/dL Magnesium (1.6-2.3) mg/dL Total Bilirubin (0.2-1.3) mg/dL AST (14-36) U/L ALT (4-34) U/L Alkaline Phosphatase (38-126) U/L Troponin I <0.012 (0.000-0.034) ng/mL NT-Pro-B Natriuret Pep 281 pg/mL Total Protein (6.3-8.2) g/dL Albumin (3.5-5.0) g/dL Coronavirus (PCR) Not Detected (Not Detectd) Disposition Clinical Impression: Hypertension, Dyspnea, Interstitial pneumonia Disposition: HOME SELF-CARE Condition: Stable Instructions (If sedation given, give patient instructions): Hypertension (ED) Additional Instructions: Please follow-up with Dr. Lord in regards to your blood pressure medications and necessary changes for improvement. Follow up with Dr. Patel in regards to your chest xray. Start taking the antibiotics tomorrow. Return to the ED for any new or worsening symptoms. Is patient prescribed a controlled substance at d/c from ED?: No Referrals: Chu Bernal MD [Primary Care Provider] - 1-2 days Jamaal Lord MD [STAFF PHYSICIAN] - 1-2 days Time of Disposition: 21:41
[2020-08-27 20:45] VITALS: BP 169/85; PULSE 64
--- NOTE | 2020-08-27 20:59 | XR ---
EXAMINATION TYPE: XR chest 2V DATE OF EXAM: 08/27/2020 COMPARISON: 07/25/2018 HISTORY: Chest pain TECHNIQUE: 2 views FINDINGS: There is no heart failure nor confluent pneumonic infiltrate. There is coarsening of the in terstitial markings. There are chest leads. IMPRESSION: Increased pulmonary interstitial density compared to old exam. This could be acute mild i nterstitial pneumonia. No pleural fluid seen.
== END 2020-08-27 21:47 | disposition home or self-care (01) ==
LOC: EC 19:31
DX: J84.9 Interstitial pulmonary disease, unspecified (principal); I10 Essential (primary) hypertension; E11.9 Type 2 diabetes mellitus without complications; J45.909 Unspecified asthma, uncomplicated; E78.5 Hyperlipidemia, unspecified; K21.9 Gastro-esophageal reflux disease without esophagitis; E07.9 Disorder of thyroid, unspecified; M19.90 Unspecified osteoarthritis, unspecified site; G47.30 Sleep apnea, unspecified; F32.9 Major depressive disorder, single episode, unspecified; F41.9 Anxiety disorder, unspecified; Z79.4 Long term (current) use of insulin; Z79.890 Hormone replacement therapy; Z79.899 Other long term (current) drug therapy; Z79.82 Long term (current) use of aspirin; Z91.048 Other nonmedicinal substance allergy status; Z91.041 Radiographic dye allergy status; Z88.0 Allergy status to penicillin; Z91.013 Allergy to seafood; Z88.5 Allergy status to narcotic agent; Z20.828 Contact with and (suspected) exposure to other viral communicable diseases; Z99.89 Dependence on other enabling machines and devices
CPT/HCPCS: 36415; 71046; 80053; 83735; 83880; 84484; 85025; 85610; 85730; 87635; 93005; 99284

== ENCOUNTER 2021-11-03 21:13 | Emergency (ER) | payer MEDICARE, OTHER ==
[2021-11-03 21:25] VITALS: BP 155/82; PULSE 71; RESP 18; TEMP 98
--- NOTE | 2021-11-03 23:40 | XR ---
EXAMINATION TYPE: XR knee complete LT DATE OF EXAM: 11/03/2021 COMPARISON: NONE HISTORY: Pain TECHNIQUE: 3 views FINDINGS: There is narrowing of the medial joint space with spurring of the femoral and tibial condyl es. There is narrowing at the patellofemoral joint space with spurring. I see no fracture nor disloca tion. IMPRESSION: Moderately severe osteoarthritis in the medial joint space. No fracture.
[2021-11-04] MEDS ORDERED: IBUPROFEN 400 MG TAB PO STA (00:26)
[2021-11-04] MEDS ORDERED: traMADol 50 MG TAB PO STA (00:26)
--- NOTE | 2021-11-04 00:29 | ED ---
Fall HPI - General Chief Complaint: Fall Stated Complaint: Fall, Bilateral knee injury Time Seen by Provider: 11/03/21 23:42 Source: patient Mode of arrival: wheelchair - History of Present Illness MD Complaint: fall Onset/Timin -: hour(s) Fall From: standing Fall Witnessed: yes, by family Place Fall Occurred: street Loss of Consciousness: none Prolonged Down Time?: no Symptoms Prior to Fall: none Location - Extremities: Left: Knee Severity: moderate Quality: aching Context: tripped/slipped - Related Data Home Medications Medication Instructions Recorded Confirmed Atorvastatin [Lipitor] 80 mg PO HS 01/26/15 08/27/20 Citalopram Hydrobromide 40 mg PO DAILY 01/26/15 08/27/20 [Citalopram HBr] Omeprazole [PriLOSEC] 20 mg PO DAILY 01/26/15 08/27/20 Furosemide [Lasix] 60 mg PO DAILY 07/18/16 08/27/20 Magnesium Oxide [Mag-Ox] 400 mg PO BID 07/18/16 08/27/20 Montelukast [Singulair] 10 mg PO HS 07/18/16 08/27/20 Levothyroxine Sodium [Synthroid] 200 mcg PO DAILY@0700 07/25/18 08/27/20 Ferrous Sulfate [Feosol] 325 mg PO BID 02/25/19 08/27/20 Levothyroxine Sodium [Synthroid] 25 mcg PO SUTUTHSA@0700 02/25/19 08/27/20 amLODIPine [Norvasc] 10 mg PO DAILY 02/25/19 08/27/20 Aspirin EC [Ecotrin Low Dose] 81 mg PO HS 08/27/20 08/27/20 Carvedilol [Coreg] 12.5 mg PO BID 08/27/20 08/27/20 Cholecalciferol (Vitamin D3) 125 mcg PO DAILY 08/27/20 08/27/20 [Vitamin D3] Fexofenadine HCl 180 mg PO DAILY 08/27/20 08/27/20 Fluticasone Nasal [place] [Flonase 1 - 2 spr EA NOSTRIL BID PRN 08/27/20 08/27/20 Nasal [place]] Gabapentin [Neurontin] 300 mg PO BID 08/27/20 08/27/20 Insulin Aspart [NovoLOG Flexpen] 30 units SQ AC-TID 08/27/20 08/27/20 Insulin Glargine,Hum.rec.anlog 30 unit SQ HS 08/27/20 08/27/20 [Lantus Solostar] Valsartan 320 mg PO HS 08/27/20 08/27/20 hydrALAZINE HCL [Apresoline] 100 mg PO TID 08/27/20 08/27/20 metFORMIN HCL [Glucophage] 1,000 mg PO BID 08/27/20 08/27/20 Previous Rx's Medication Instructions Recorded traMADol HCl [Ultram] 50 mg PO Q6H PRN #20 tab 11/04/21 Allergies Allergy/AdvReac Type Severity Reaction Status Date / Time TESHA Inhibitors Allergy Anaphylaxis Verified 11/03/21 21:26 adhesive tape Allergy Rash/Hives Verified 11/03/21 21:25 Iodinated Contrast Media Allergy Anaphylaxis Verified 11/03/21 21:25 [Iodinated Contrast- Oral and IV Dye] iodine Allergy Anaphylaxis Verified 11/03/21 21:25 Penicillins Allergy Anaphylaxis Verified 11/03/21 21:25 shellfish derived [Shellfish] Allergy Anaphylaxis Verified 11/03/21 21:25 codeine AdvReac Nausea & Verified 11/03/21 21:25 Vomiting Review of Systems ROS Statement: Those systems with pertinent positive or pertinent negative responses have been documented in the HPI. ROS Other: All systems not noted in ROS Statement are negative. Constitutional: Denies: fever Respiratory: Denies: dyspnea Cardiovascular: Denies: chest pain Gastrointestinal: Denies: abdominal pain Musculoskeletal: Denies: back pain Neurological: Denies: headache, weakness, numbness, paresthesias Past Medical History Past Medical History: Asthma, Diabetes Mellitus, GERD/Reflux, Hyperlipidemia, Hypertension, Osteoarthritis (OA), Sleep Apnea/CPAP/BIPAP, Thyroid Disorder Additional Past Medical History / Comment(s): PVC"PALPITATIONS, MIGARINES, LYMPHEDEMA -BILATERAL LEGS WEARS compression stockings History of Any Multi-Drug Resistant Organisms: None Reported Past Surgical History: Appendectomy, Section, Cholecystectomy, Heart Catheterization, Hysterectomy, Orthopedic Surgery Additional Past Surgical History / Comment(s): LT LEG/ANLKE- HARDWARE WAS RMOV ED-A SMALL PEICE OF SCREW LEFT, COLONOSCOPY-BENIGN POLYPS Past Anesthesia/Blood Transfusion Reactions: Motion Sickness Additional Past Anesthesia/Blood Transfusion Reaction / Comment(s): CAN'T RIDE IN BACK SEAT OF CAR Past Psychological History: Anxiety, Depression Smoking Status: Never smoker Past Alcohol Use History: None Reported Past Drug Use History: None Reported - Past Family History Father Family Medical History: Coronary Artery Disease (CAD), Diabetes Mellitus, Hypertension Additional Family Medical History / Comment(s): HAD TOTAL OCCLUSION LT GROIN -HAD SX Mother Family Medical History: Dementia, Diabetes Mellitus, Thyroid Disorder General Exam Limitations: no limitations General appearance: alert, in no apparent distress Head exam: Present: atraumatic, normocephalic Eye exam: Absent: scleral icterus, conjunctival injection Respiratory exam: Present: normal lung sounds bilaterally. Absent: respiratory distress, wheezes, rales, rhonchi, stridor Cardiovascular Exam: Present: regular rate, normal rhythm, normal heart sounds. Absent: systolic murmur, diastolic murmur, rubs, gallop GI/Abdominal exam: Present: soft. Absent: distended, tenderness, guarding, rebound, rigid, mass Extremities exam: Present: normal inspection, normal capillary refill. Absent: pedal edema, calf tenderness Back exam: Present: normal inspection. Absent: vertebral tenderness Skin exam: Present: warm, dry, intact, normal color. Absent: rash Course Vital Signs 11/03/21 21:20 Temperature 98 F Pulse Rate 71 Respiratory 18 Rate Blood Pressure 155/82 O2 Sat by Pulse 95 Oximetry Disposition Clinical Impression: Fall, Knee sprain Disposition: HOME SELF-CARE Condition: Good Instructions (If sedation given, give patient instructions): Knee Sprain (DC) Prescriptions: traMADol HCl [Ultram] 50 mg PO Q6H PRN #20 tab PRN Reason: Pain Is patient prescribed a controlled substance at d/c from ED?: Yes When asked, does pt state using other controlled substances?: No If prescribed controlled substance>3 days was MAPS reviewed?: Prescribed <3 Days If opioid is for acute pain is fill amount 7 days or less?: Yes If Rx opioid, was Start Talking consent form obtained?: Yes Referrals: Chu Winchester MD [Primary Care Provider] - 1-2 days Abdirizak Delacruz DO [Doctor of Osteopathic Medicine] - 1-2 days
== END 2021-11-04 02:07 | disposition home or self-care (01) ==
LOC: EC 21:13
DX: S83.92XA Sprain of unspecified site of left knee, initial encounter (principal); J45.909 Unspecified asthma, uncomplicated; E11.9 Type 2 diabetes mellitus without complications; K21.9 Gastro-esophageal reflux disease without esophagitis; E78.5 Hyperlipidemia, unspecified; I10 Essential (primary) hypertension; M19.90 Unspecified osteoarthritis, unspecified site; E07.9 Disorder of thyroid, unspecified; F41.9 Anxiety disorder, unspecified; F32.A Depression, unspecified; Z79.82 Long term (current) use of aspirin; Z79.4 Long term (current) use of insulin; Z79.84 Long term (current) use of oral hypoglycemic drugs; Z88.0 Allergy status to penicillin; Z88.5 Allergy status to narcotic agent; Z90.49 Acquired absence of other specified parts of digestive tract; Z90.710 Acquired absence of both cervix and uterus; W01.0XXA Fall on same level from slipping, tripping and stumbling without subsequent striking against object, initial encounter
CPT/HCPCS: 99283

== ENCOUNTER → 2021-11-18 | Outpatient (CLI) | payer MEDICARE, OTHER ==
--- NOTE | 2021-11-18 09:48 | P.CON ---
Consult Note - . Consult date: 11/18/21 Assessment/Plan:: HISTORY OF PRESENT ILLNESS: 56 yr old female as a referral from Dr Filipe Sosa presents today with migraines for the last 6 months for an evaluation. Patient states she experienced his neck pain, headache pain, neck tightness and jaw tightness with the yawning, lateral flexion of the neck or occasional rotation of the cervical spine. Pain waxes and wanes throughout the day but is currently 3 out of 10 in intensity, sharp, burning from the base of the head with radiation of the head and down the right side of the neck. Pain is alleviated with medications, topicals, ice, physical therapy for a 6 week stent starting in 08/31, home daily exercise regimen, positioning, massage and rest. PMH: HTN, Hyperlipidemia, IDDM, Obesity, CAD, OA, GERD, MDD, Hypothyroidism, Iron Deficiency Anemia PSH: Appendectomy, Section, Cholecystectomy, Heart Catheterization, Hysterectomy, Orthopedic Surgery SH: Negative x 3 FH: Non contributory All: See list Meds: See list REVIEW OF ORGAN SYSTEMS: CONSTITUTIONAL: No fevers or chills. No recent weight loss. HEENT: No visual acuity loss, eye pain, difficulties with hearing. No nosebleeds. No difficulty swallowing. RESPIRATORY: Denies any troubles with breathing or dyspnea on exertion. CARDIOVASCULAR: Denies any chest pain, palpitations, or recent heart attacks. GASTROINTESTINAL: Denies fatty food intolerance. Has change in bowel habits and gas bloat. GENITOURINARY: Denies any blood in urine. Has increased urinary frequency. NEUROLOGICAL: + numbness and tingling along the distal extremities. No seizure disorders or headaches. MUSCULOSKELETAL: + back pain SKIN: No skin cancer. No rash. PSYCHIATRIC: Denies current depression or suicidal thoughts. ENDOCRINE: Denies current thyroid disorders. Denies any blood sugar glucose intolerance. HEME/LYMPHATIC: Denies any lumps and bumps around the neck. History of deep venous thrombosis. ALLERGY/IMMUNOLOGY: No immunoglobulin therapy. No immune deficiencies. BREAST: Denies current breast lumps, pain or nipple discharge. Physical Examinations : Constitutional : Cooperative , not in acute distress . HEENT: Neck supple. No Lymphadenopathy. Normal thyroid size . TTP to R CHRISTOFER with jump reflex Eyes no ptosis , no icterus, no photophobia . Hearing intact. Normal oropharynx. No Thrush. Respiratory : Chest clear to auscultations bilaterally. No wheezing. No rhonchi. Cardiovascular : Regular rate and rhythm , S1 / S2. No S3 . No S4. Gastrointestinal : Abdomen soft. No tenderness. Bowel sounds x 4. No organomegaly . Genitourinary : Deferred. Neurologic : Cranial nerve II to XII intact. No focal neurological deficits. Psychiatric : alert & oriented x 3. Matching mood & appropriate affect. Judgment & insight intact. Lymphatic No Lymphadenopathy. Musculoskeletal : Cervical Spine Motor strength in the deltoid and biceps: Normal right side. Normal Left side Motor strength biceps and the wrist extensors: Normal right side . Normal left side Motor strength in the triceps muscle: Normal right side. Normal left side Deep tendon reflexes: Normal at the biceps. Normal at Brachioradialis. Normal at triceps Cervical facet loading test: positive bilaterally Spurling test: positive bilaterally Neck distraction test: positive bilaterally Rola sign: positive bilaterally Lumbar spine Motor strength lower extremities ,thigh and legs 5/5 Right side , 5/5 Left side Deep tendon reflexes : Normal Knee Jerk. Normal Ankle Jerk Vertebral body tenderness over Lumbar facet Loading Test: positive Right / positive Left Range of motion of the lumbar spine Flexion 30 degrees, extension 10 degrees Straight Leg Raise test: Left/ Right positive at degree Dianna test: positive right / positive left. Severe tenderness over the Sacroiliac joint on the Right / Left sides Gaenslen test: positive bilaterally Seated flexion test: positive bilaterally. Assessment/ Plan : Recommendation of R CHRISTOFER injection. May need a series of 3, within a 6 mo period, to obtain optimal pain relief. May also consider alternative treatments, including C2-C3 and 3rd O.N. injections. Admits to IDDM Type II. Withholding insulin protocol prior to procedure discussed. Admits to ASA 81 mg use. Discussed withholding meds prior to procedure. Risks, benefits of procedure discussed and patient verbalized understanding. All questions answered. I have spent greater than 50 minutes on patient care today. Dr Umaña was available by phone for the evaluation of this patient. The time was used to review the medical records including relevant urine studies and Prescription history (MAPs), review of the available imaging, evaluation and examination of the patient, coordination of care with the medical staff and if applicable referring physicians, as well as creation of the medical record PQRS Measure Charge Sheet - Pain Location Posterior Head Non-Pharmacological Interventions: Inactivity, Physical Therapy, Position/Reposition Pharmacological Interventions: PRN Medication, Topical Medication PQRS Narrative: Smoking Status Never smoker Pain Intensity [Posterior Head 8 ] Scale Used Numeric (1 - 10) Hx Alcohol Use (MH) No Home Medications: Ambulatory Orders Atorvastatin [Lipitor] 80 mg PO DAILY 01/26/15 Citalopram Hydrobromide [Citalopram HBr] 40 mg PO DAILY 01/26/15 Omeprazole [PriLOSEC] 20 mg PO DAILY 01/26/15 Furosemide [Lasix] 40 mg PO DAILY 07/18/16 Magnesium Oxide [Mag-Ox] 400 mg PO BID 07/18/16 Montelukast [Singulair] 10 mg PO DAILY 07/18/16 Levothyroxine Sodium [Synthroid] 200 mcg PO DAILY 07/25/18 Ferrous Sulfate [Feosol] 325 mg PO BID 02/25/19 Levothyroxine Sodium [Synthroid] 25 mcg PO SUTUTHSA 02/25/19 amLODIPine [Norvasc] 10 mg PO DAILY 02/25/19 Aspirin EC [Ecotrin Low Dose] 81 mg PO DAILY 08/27/20 Carvedilol [Coreg] 12.5 mg PO BID 08/27/20 Cholecalciferol (Vitamin D3) [Vitamin D3] 125 mcg PO DAILY 08/27/20 Fexofenadine HCl 180 mg PO DAILY 08/27/20 Gabapentin [Neurontin] 300 mg PO BID 08/27/20 Insulin Aspart [NovoLOG Flexpen] 30 units SQ AC-TID 08/27/20 Insulin Glargine,Hum.rec.anlog [Lantus Solostar] 35 unit SQ HS 08/27/20 hydrALAZINE HCL [Apresoline] 100 mg PO BID 08/27/20 metFORMIN HCL [Glucophage] 1,000 mg PO BID 08/27/20 Furosemide [Lasix] 20 mg PO DAILY 11/17/21 Ibuprofen 600 mg PO Q8H PRN 11/17/21 Losartan Potassium [Cozaar] 100 mg PO DAILY 11/17/21 diphenhydrAMINE HCL [Benadryl] 50 mg PO HS 11/17/21
[2021-11-18 14:19] VITALS: BP 151/76; PULSE 58; RESP 18
== END ==
LOC: PNWHC3 08:35
PROVIDERS: ATTEND Physician Assistant Medical
DX: M54.81 Occipital neuralgia (principal); G43.909 Migraine, unspecified, not intractable, without status migrainosus; I10 Essential (primary) hypertension; E78.5 Hyperlipidemia, unspecified; E11.9 Type 2 diabetes mellitus without complications; E66.9 Obesity, unspecified; I25.10 Atherosclerotic heart disease of native coronary artery without angina pectoris; M19.90 Unspecified osteoarthritis, unspecified site; E03.9 Hypothyroidism, unspecified; K21.9 Gastro-esophageal reflux disease without esophagitis; Z79.890 Hormone replacement therapy; Z68.45 Body mass index [BMI] 70 or greater, adult; Z88.8 Allergy status to other drugs, medicaments and biological substances; Z88.0 Allergy status to penicillin; Z88.5 Allergy status to narcotic agent; Z91.041 Radiographic dye allergy status; Z91.013 Allergy to seafood; Z91.048 Other nonmedicinal substance allergy status
CPT/HCPCS: 99202

== ENCOUNTER → 2021-12-07 | Outpatient (CLI) | payer MEDICARE ==
--- NOTE | 2021-12-09 08:36 | MM ---
Reason for exam: screening (asymptomatic). Last mammogram was performed 2 years and 10 months ago. History: Patient is postmenopausal. Benign stereotactic core biopsy of the left breast, 2017. Physical Findings: A clinical breast exam by your physician is recommended on an annual basis and results should be correlated with mammographic findings. MG Screening Mammo w CAD Bilateral CC and MLO view(s) were taken. Prior study comparison: February 18, 2019, bilateral MG screening mammo w CAD. December 16, 2017, bilateral MG screening mammo w CAD. The breast tissue is almost entirely fat. Finding: There are new fine grouped/clustered calcifications in the outer quadrant of the right breast on CC view. New finding since February 18, 2019. ASSESSMENT: Incomplete: need additional imaging evaluation, BI-RAD 0 RECOMMENDATION: Special view mammogram of the right breast. (magnification CC) [facility] will attempt to contact patient to return for supplemental views.
== END | disposition home or self-care (01) ==
LOC: RADMAMWWP 09:06
PROVIDERS: ATTEND Internal Medicine
DX: Z12.31 Encounter for screening mammogram for malignant neoplasm of breast (principal); Z78.0 Asymptomatic menopausal state
CPT/HCPCS: 77067

== ENCOUNTER → 2021-12-10 | Outpatient (CLI) | payer MEDICARE ==
--- NOTE | 2021-12-10 14:47 | MM ---
Reason for exam: additional evaluation requested from abnormal screening. Last mammogram was performed less than 1 month ago. History: Patient is postmenopausal. Benign stereotactic core biopsy of the left breast, 2017. Physical Findings: A clinical breast exam by your physician is recommended on an annual basis and results should be correlated with mammographic findings. MG Work Up Mamm w CAD RT CC with magnification and LM view(s) were taken of the right breast. Prior study comparison: December 07, 2021, bilateral MG screening mammo w CAD. There are scattered fibroglandular densities. There is no discrete abnormality including area of concern. ASSESSMENT: Benign, BI-RAD 2 RECOMMENDATION: Return to routine screening mammogram schedule for both breasts. Back on schedule.
== END | disposition home or self-care (01) ==
LOC: RADMAMWWP 12:44
PROVIDERS: ATTEND Internal Medicine
DX: R92.8 Other abnormal and inconclusive findings on diagnostic imaging of breast (principal); Z78.0 Asymptomatic menopausal state
CPT/HCPCS: 77065

== ENCOUNTER 2022-01-11 15:31 | Emergency (ER) | payer MEDICARE, OTHER ==
--- NOTE | 2022-01-11 16:23 | ED ---
General Adult HPI - General Chief complaint: Upper Respiratory Infection Stated complaint: COVID+, Wants Infusion, Cough, Headache Time Seen by Provider: 01/11/22 16:15 Source: patient, RN notes reviewed, old records reviewed Mode of arrival: wheelchair Limitations: no limitations - History of Present Illness Initial comments: This is a 56-year-old female presents to the emergency department stating that on Monday she started having symptoms of a cough and states when she is coughing she sometimes short of breath. Patient denies any diarrhea. Patient denies loss of taste or smell. Patient states she has a little bit of body aches but nothing too bad. Patient states she was tested Dr. Winchester's office and she was positive for COVID and she is here for the infusion. - Related Data Home Medications Medication Instructions Recorded Confirmed Atorvastatin [Lipitor] 80 mg PO DAILY 01/26/15 12/24/21 Citalopram Hydrobromide 40 mg PO DAILY 01/26/15 12/24/21 [Citalopram HBr] Omeprazole [PriLOSEC] 20 mg PO DAILY 01/26/15 12/24/21 Furosemide [Lasix] 40 mg PO DAILY 07/18/16 12/24/21 Magnesium Oxide [Mag-Ox] 400 mg PO BID 07/18/16 12/24/21 Montelukast [Singulair] 10 mg PO DAILY 07/18/16 12/24/21 Levothyroxine Sodium [Synthroid] 200 mcg PO DAILY 07/25/18 12/24/21 Ferrous Sulfate [Feosol] 325 mg PO BID 02/25/19 12/24/21 Levothyroxine Sodium [Synthroid] 25 mcg PO SUTUTHSA 02/25/19 12/24/21 amLODIPine [Norvasc] 10 mg PO DAILY 02/25/19 12/24/21 Aspirin EC [Ecotrin Low Dose] 81 mg PO DAILY 08/27/20 12/24/21 Carvedilol [Coreg] 12.5 mg PO BID 08/27/20 12/24/21 Cholecalciferol (Vitamin D3) 125 mcg PO DAILY 08/27/20 12/24/21 [Vitamin D3] Fexofenadine HCl 180 mg PO DAILY 08/27/20 12/24/21 Gabapentin [Neurontin] 300 mg PO BID 08/27/20 12/24/21 Insulin Aspart [NovoLOG Flexpen] 30 units SQ AC-TID 08/27/20 12/24/21 Insulin Glargine,Hum.rec.anlog 35 unit SQ HS 08/27/20 12/24/21 [Lantus Solostar] hydrALAZINE HCL [Apresoline] 100 mg PO BID 08/27/20 12/24/21 metFORMIN HCL [Glucophage] 1,000 mg PO BID 08/27/20 12/24/21 Furosemide [Lasix] 20 mg PO DAILY 11/17/21 12/24/21 Ibuprofen 600 mg PO Q8H PRN 11/17/21 12/24/21 Losartan Potassium [Cozaar] 100 mg PO DAILY 11/17/21 12/24/21 diphenhydrAMINE HCL [Benadryl] 50 mg PO HS 11/17/21 12/24/21 Melatonin 10 mg PO HS 12/24/21 Allergies Allergy/AdvReac Type Severity Reaction Status Date / Time TESHA Inhibitors Allergy Anaphylaxis Verified 01/11/22 15:45 adhesive tape Allergy Rash/Hives Verified 01/11/22 15:45 cat dander Allergy Unknown Verified 01/11/22 15:45 Iodinated Contrast Media Allergy Anaphylaxis Verified 01/11/22 15:45 [Iodinated Contrast- Oral and IV Dye] iodine Allergy Anaphylaxis Verified 01/11/22 15:45 Penicillins Allergy Anaphylaxis Verified 01/11/22 15:45 shellfish derived [Shellfish] Allergy Anaphylaxis Verified 01/11/22 15:45 codeine AdvReac Nausea & Verified 01/11/22 15:45 Vomiting Review of Systems ROS Statement: Those systems with pertinent positive or pertinent negative responses have been documented in the HPI. ROS Other: All systems not noted in ROS Statement are negative. 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 History of Any Multi-Drug Resistant Organisms: None Reported Past Surgical History: Appendectomy, Section, Cholecystectomy, Heart Catheterization, Hysterectomy, Orthopedic Surgery Additional Past Surgical History / Comment(s): LEFT LEG/ANLKE- HARDWARE WAS REMOVED-A SMALL PIECE OF SCREW LEFT, COLONOSCOPY-BENIGN POLYPS. Past Anesthesia/Blood Transfusion Reactions: Family History of Problems w/ Anesthesia, Motion Sickness Additional Past Anesthesia/Blood Transfusion Reaction / Comment(s): "CAN'T RIDE IN BACK SEAT OF CAR." Daughter stopped breathing after surgery due to Morphine. Past Psychological History: Anxiety, Depression Smoking Status: Never smoker Past Alcohol Use History: None Reported Past Drug Use History: None Reported - Past Family History Father Additional Family Medical History / Comment(s): HAD TOTAL OCCLUSION LT GROIN - HAD SX Mother Family Medical History: Dementia, Diabetes Mellitus, Thyroid Disorder General Exam - General Exam Comments Initial Comments: GENERAL: Patient is well-developed and well-nourished. Patient is nontoxic and well- hydrated and is in no acute distress. ENT: Neck is soft and supple. No significant lymphadenopathy is noted. Oropharynx is clear. Moist mucous membranes. Neck has full range of motion without eliciting any pain. EYES: The sclera were anicteric and conjunctiva were pink and moist. Extraocular movements were intact and pupils were equal round and reactive to light. Eyelids were unremarkable. PULMONARY: Unlabored respirations. Good breath sounds bilaterally. No audible rales rhonchi or wheezing was noted. CARDIOVASCULAR: There is a regular rate and rhythm without any murmurs gallops or rubs. ABDOMEN: Soft and nontender with normal bowel sounds. Morbidly obese SKIN: Skin is clear with no lesions or rashes and otherwise unremarkable. NEUROLOGIC: Patient is alert and oriented x3. Cranial nerves II through XII are grossly intact. Motor and sensory are also intact. Normal speech, volume and content. Symmetrical smile. MUSCULOSKELETAL: Normal extremities with adequate strength and full range of motion. LYMPHATICS: No significant lymphadenopathy is noted PSYCHIATRIC: Normal psychiatric evaluation. Limitations: no limitations Course Vital Signs 01/11/22 01/11/22 15:43 17:21 Temperature 98.6 F Pulse Rate 67 57 L Respiratory 20 18 Rate Blood Pressure 169/77 167/82 O2 Sat by Pulse 95 93 L Oximetry Medical Decision Making - Medical Decision Making Chest x-ray shows no acute abnormality. I went back in after 2 negative coitus and spoke to the patient she stated she felt fine she wasn't short of breath and did want to go home and follow up with primary medical care doctor patient's pulse ox at this point time was 95% room air - Lab Data Lab Results 01/11/22 01/11/22 Range/Units 16:20 16:59 Coronavirus (PCR) Not Detected Not Detected (Not Detectd) Disposition Clinical Impression: Upper respiratory tract infection Disposition: HOME SELF-CARE Condition: Good Instructions (If sedation given, give patient instructions): Upper Respiratory Infection (ED) Is patient prescribed a controlled substance at d/c from ED?: No Referrals: Chu Winchester MD [Primary Care Provider] - 1-2 days Time of Disposition: 18:46
--- NOTE | 2022-01-11 17:18 | XR ---
EXAMINATION TYPE: XR chest 2V DATE OF EXAM: 01/11/2022 4:48 PM COMPARISON: Chest radiographs from 08/27/2020 TECHNIQUE: XR chest 2V Frontal and lateral views of the chest. CLINICAL INDICATION:Female, 56 years old with history of Difficulty breathing ; FINDINGS: Lungs/Pleura: There is no evidence of pleural effusion, focal consolidation, or pneumothorax. Pulmonary vascularity: Similar pulmonary vascular congestion and/or interstitial opacities. Heart/mediastinum: Cardiomediastinal silhouette is unremarkable. Musculoskeletal: No acute osseous pathology. IMPRESSION: Cardiomegaly with similar pulmonary vascular congestion/interstitial opacities dating back to 2019..
[2022-01-11 17:22] VITALS: RESP 18
[2022-01-11 19:27] VITALS: BP 165/79; PULSE 61; TEMP 98.7
== END 2022-01-11 19:23 | disposition home or self-care (01) ==
LOC: EC 15:31
DX: J06.9 Acute upper respiratory infection, unspecified (principal); J45.909 Unspecified asthma, uncomplicated; I10 Essential (primary) hypertension; K21.9 Gastro-esophageal reflux disease without esophagitis; Z79.1 Long term (current) use of non-steroidal anti-inflammatories (NSAID); E07.9 Disorder of thyroid, unspecified; Z79.83 Long term (current) use of bisphosphonates; Z20.822 Contact with and (suspected) exposure to COVID-19; Z88.8 Allergy status to other drugs, medicaments and biological substances; Z91.041 Radiographic dye allergy status; Z88.0 Allergy status to penicillin; Z88.5 Allergy status to narcotic agent; Z91.013 Allergy to seafood
CPT/HCPCS: 71046; 87635

== ENCOUNTER 2022-03-10 08:00 | Day surgery (SDC) | payer MEDICARE, OTHER ==
[2022-03-08 15:06] VITALS: BMI 72.8
[~2022-03-10 08:00] MED LIST changes: +LIDOCAINE 1% (10MG/ML) FOR IV START INTRADERMA PRN; -LIDOCAINE 1% 20 ML VIAL (10MG/ML) FOR IV START INTRADERMA PRN
[2022-03-10 09:21] VITALS: TEMP 97.3
[2022-03-10 09:28] LABS: Glucose,Whole Blood 186 mg/dL (70-110)
[2022-03-10] MEDS ORDERED: LACTATED RINGERS 1,000 ML IV ONE (09:28)
[2022-03-10] MEDS ORDERED: ROPIVACAINE 5MG/ML 20ML VIAL ONE (10:02)
[2022-03-10] MEDS ORDERED: methylPREDNISolone ACETATE 40 MG/ML 1 ML VIAL ONE (10:02)
[2022-03-10] MEDS ORDERED: fentaNYL (PF) 50 MCG/ML 2 ML AMP ONE (10:02)
[2022-03-10] MEDS ORDERED: MIDAZOLAM 2 MG/2 ML VIAL ONE (10:02)
--- NOTE | 2022-03-10 10:17 | P.PCN ---
Date of Procedure: 03/10/22 Procedure(s) Performed: Preoperative diagnoses= 1- Greater occipital neuralgia. Postoperative diagnoses= same as preoperative diagnosis. Procedure= Right Greater occipital nerve block Anesthesia= moderate sedation with Versed 2 mg and fentanyl 100 micrograms . Estimated blood loss=minimal. Procedure indication= the patient had a history of severe chronic neck pain ,and headache, diagnosed with occipital neuralgia exam was positive for severe tenderness over the right occipital nerve , she will be a good candidate occipital nerve block, patient failed conservative management Procedure description= the patient was seen and identified in the preoperative holding area, risks and benefits and alternative of the procedure and possible complications discussed with the patient, and he agreed with the preceding, patient signed the consent, an IV was started, and vital signs were monitored and were stable throughout the procedure, patient was placed in the sitting position or table and the neck area was prepped and draped with a sterile fashion, vital signs were closely monitored during the procedure, 25-gauge needle advanced 1 inch lateral to the occipital protuberance on the right side, at the location of the right occipital nerve , then after negative aspiration for heme and CSF and there was no paresthesia during the injection, 6 ml of Robivacaine 0.5% and 40 mg of Depo-Medrol injected after negative aspiration, the needle removed,. Patient tolerated the procedure well without any complication, The patient returned to supine position after the back was cleaned and a Band- Aid applied, the patient transported to recovery room in stable condition and he was monitored for 30 minutes before he was discharged home and then patient was reexamined before going home and patient was discharged in stable condition and patient will follow up with the pain clinic in a few weeks.
[2022-03-10] MEDS ORDERED: IV FLUID CONTINUATION 1,000 ML IV ONE (10:19)
[2022-03-10 10:31] VITALS: RESP 18
[2022-03-10 10:40] VITALS: BP 112/70; PULSE 55
== END 2022-03-10 11:20 | disposition home or self-care (01) ==
LOC: ORPAIN 08:00
PROVIDERS: ATTEND Specialist
DX: M54.81 Occipital neuralgia (principal)
CPT/HCPCS: 64405; J2250; J1030; J3010; J2795; 99152

== ENCOUNTER → 2022-03-24 | Outpatient (CLI) | payer MEDICARE, OTHER ==
[2022-03-24 09:26] VITALS: BP 128/68; PULSE 62; RESP 18; TEMP 97.6
--- NOTE | 2022-03-24 11:38 | P.PAINPG ---
PQRS Measure Charge Sheet Comment: A 57 yr old female with a history of severe and chronic low back pain secondary to lumbar degenerative disc diseases and lumbar spondylosis with facet arthropathy presents today for evaluation s/p R CHRISTOFER injection. Pt stated she received 80% pain relief s/p procedure. Pain level is currently at 6/10 in inten sity, intermittent, sharp/ shooting from the base of the R neck towards the R jaw and R side of head. Pain is provoked by rotation and hyperextension. Pain is alleviated with medications, injections, ice, PT in Sep 2021, home exercise regimen, use of a wheelchair for ambulatory assistance, massage at home, repositioning and rest. Interventional pain procedures completed include R CHRISTOFER x 1 Patient is currently on ASA 81mg Patient denies any side effects of the medication(s), denies excessive drowsiness or sleepiness, denies suicidal ideation and reports that the current pain medication is helping to control the pain and improve activities of daily living. Patient denies any motor or sensory deficits. Patient denies any fever or night sweats, denies any change in the bowel movements or urination. Physical Examination: -Constitutional: Cooperative. Not in acute distress . - Neurologic: Cranial nerve II to XII intact. No focal neurological deficits. - Psychatric: Alert & oriented x 3. Matching mood & appropriate affect. Judgment and insight intact. - Musculoskeletal: Cervical spine: +R CHRISTOFER/ROMAN TTP Muscle bulk/ tone/ strength in the bilateral upper extremities normal Vertebral body tenderness to palpation over Spurling test positive Distraction test positive Facet loading test positive Thoracic spine Muscle bulk / tone/ strength in the bilateral paraspinal muscles normal Vertebral body tender to palpation over Facet loading test positive Lumbar spine: Motor bulk/ tone/ strength lower extremities , thigh and legs : 5/5 Deep tendon reflexes : Normal Knee Jerk. Normal Ankle Jerk . Vertebral body tenderness to palpation over Lumbar Facet Loading Test positive Straight Leg Raise: positive at 30 degrees right side/ left side Gaenslen's Test positive Sacral spine : Severe tenderness over the Sacroiliac joint: right side / left side Range of motion: Flexion of the lumbar spine <60 degrees Range of motion: Extension of the lumbar spine <20 degrees Gaenslen's Test positive Kody's Test positive Dianna test: positive right side / left side Thigh Thrust Test Sacral Thrust Test Assessment and plan: Chronic low back pain secondary to lumbar degenerative disc disease , lumbar spondylosis with facet arthropathy without myelopathy Recommendation of R CHRISTOFER/ROMAN injection. May need a series, up to 3 within a 6 mo period, for optimal pain relief. Risks, benefits of procedure discussed and pt verbalized understanding. Denies anticoagulant use or medical history of diabetes. All patient questions answered MAPS reviewed and it was appropriate. I have spent less than 30 minutes on patient care today. Dr Umaña was available by phone for the evaluation of this patient. The time was used to review the medical records including relevant urine studies and Prescription history (MAPs), review of the available imaging, evaluation and examination of the patient, coordination of care with the medical staff and if applicable referring physicians, as well as creation of the medical record PQRS Narrative: Smoking Status Never smoker Hx Alcohol Use (MH) No Home Medications: Ambulatory Orders Atorvastatin [Lipitor] 80 mg PO DAILY 01/26/15 Citalopram Hydrobromide [Citalopram HBr] 40 mg PO DAILY 01/26/15 Omeprazole [PriLOSEC] 20 mg PO DAILY 01/26/15 Furosemide [Lasix] 40 mg PO DAILY 07/18/16 Magnesium Oxide [Mag-Ox] 400 mg PO BID 07/18/16 Montelukast [Singulair] 10 mg PO DAILY 07/18/16 Levothyroxine Sodium [Synthroid] 200 mcg PO DAILY 07/25/18 Ferrous Sulfate [Feosol] 325 mg PO BID 02/25/19 Levothyroxine Sodium [Synthroid] 25 mcg PO Q48H 02/25/19 amLODIPine [Norvasc] 10 mg PO DAILY 02/25/19 Aspirin EC [Ecotrin Low Dose] 81 mg PO DAILY 08/27/20 Cholecalciferol (Vitamin D3) [Vitamin D3] 125 mcg PO DAILY 08/27/20 Fexofenadine HCl 180 mg PO DAILY 08/27/20 Gabapentin [Neurontin] 300 mg PO TID 08/27/20 Insulin Aspart [NovoLOG Flexpen] 30 units SQ AC-TID 08/27/20 Insulin Glargine,Hum.rec.anlog [Lantus Solostar] 35 unit SQ HS 08/27/20 carvediloL [Coreg] 12.5 mg PO BID 08/27/20 hydrALAZINE HCL [Apresoline] 100 mg PO BID 08/27/20 metFORMIN HCL [Glucophage] 1,000 mg PO BID 08/27/20 Furosemide [Lasix] 20 mg PO DAILY 11/17/21 Ibuprofen 600 mg PO Q8H PRN 11/17/21 Losartan Potassium [Cozaar] 100 mg PO DAILY 11/17/21 diphenhydrAMINE HCL [Benadryl] 50 mg PO HS 11/17/21 Melatonin [Melatonin ER] 10 mg PO HS 12/24/21 Insulin Glargine [Lantus Vial] 10 unit SQ QAM 03/08/22 Controlled Substance Measures - Controlled Substance Measures Is patient prescribed a controlled substance at discharge?: No
== END ==
LOC: PNWHC3 08:29
PROVIDERS: ATTEND Specialist
DX: M51.36 Other intervertebral disc degeneration, lumbar region (principal); M47.816 Spondylosis without myelopathy or radiculopathy, lumbar region; G89.29 Other chronic pain; Z88.8 Allergy status to other drugs, medicaments and biological substances; Z91.048 Other nonmedicinal substance allergy status; Z91.09 Other allergy status, other than to drugs and biological substances; Z91.041 Radiographic dye allergy status; Z88.0 Allergy status to penicillin; Z91.013 Allergy to seafood; Z88.5 Allergy status to narcotic agent
CPT/HCPCS: 99211

== ENCOUNTER → 2022-12-09 | Outpatient (CLI) | payer MEDICARE, OTHER ==
--- NOTE | 2022-12-12 17:11 | MM ---
Reason for Exam: Screening (asymptomatic). Last screening mammogram was performed 12 month(s) ago. Patient History: Menarche at age 13. First Full-Term at age 21. Left ovary removed at age 27. Right ovary removed at age 27. Hysterectomy at age 27. Postmenopausal. 2017, Benign Stereotactic Core Biopsy on the left side. Risk Values: Ju 5 year model risk: 1.3%. NCI Lifetime model risk: 8.5%. Prior Study Comparison: 02/18/2019 Bilateral Screening Mammogram, [facility]. 12/07/2021 Bilateral Screening Mammogram, [facility]. 12/10/2021 Right Diagnostic Mammogram, [facility]. Tissue Density: There are scattered fibroglandular densities. Findings: Analyzed By CAD. Pattern appears symmetrical and stable. Benign vascular calcifications present bilaterally. Benign punctate calcifications are present. No suspicious groups of microcalcifications, spiculated or lobular masses, architectural distortion or other secondary signs of malignancy are mammographically apparent. Overall Assessment: Benign, BI-RAD 2 Management: Screening Mammogram of both breasts in 1 year. A negative mammogram report should not preclude additional follow up of suspicious palpable abnormalities. Patient should continue monthly self breast exam. A clinical breast exam by your physician is recommended on an annual basis and results should be correlated with mammographic findings. Electronically signed and approved by: Robson Saede D.O. Radiologis
== END | disposition home or self-care (01) ==
LOC: RADMAMWWP 11:05
PROVIDERS: ATTEND Internal Medicine
DX: Z12.31 Encounter for screening mammogram for malignant neoplasm of breast (principal); Z78.0 Asymptomatic menopausal state; Z98.890 Other specified postprocedural states
CPT/HCPCS: 77067

== ENCOUNTER → 2024-05-03 | Outpatient (CLI) | payer MEDICARE, OTHER ==
--- NOTE | 2024-05-29 15:55 | US ---
Patient: Lily Bazan Ordering Physician: Unknown, Unknown ID: [id number] Phone, Pager: Phone: N/A Pager: N/A : 1965 Age/Gender: 59Y, F Primary Location: N/A Procedure: US mass soft tissue bakari st/back Study Date: 05/03/2024 8:52:00 AM EXAMINATION TYPE: US mass soft tissue chest/back DATE OF EXAM: 05/03/2024 COMPARISON: NONE CLINICAL INDICATION: Unknown, old with history of ; Right upper chest palps x years that sometimes change size. Patient states she has lost >90 lbs. Tech Imp: area of concern scanned at upper right chest. Oval slightly echogenic areas seen, with 2 la rgest measured: 1: 8.0 x 6.4 x 3.4 cm 2: 3.2 x 3.2 x 1.5 cm IMPRESSION: Lipomas as discussed above.
== END | disposition home or self-care (01) ==
LOC: RADUSWWP 08:35
PROVIDERS: ATTEND Surgery Plastic and Reconstructive Surgery
DX: D17.1 Benign lipomatous neoplasm of skin and subcutaneous tissue of trunk (principal)

== ENCOUNTER → 2024-05-21 | Outpatient (CLI) | payer MEDICARE, OTHER ==
[2024-05-21 10:32] LABS: T4, Free (Free Thyroxine) 1.17 ng/dL (0.80-1.80)
== END | disposition home or self-care (01) ==
LOC: LABWHC1 07:28
PROVIDERS: ATTEND Internal Medicine
DX: E11.65 Type 2 diabetes mellitus with hyperglycemia (principal); E03.9 Hypothyroidism, unspecified; E66.9 Obesity, unspecified
CPT/HCPCS: 36415; 82947; 83036; 84439; 84443

== ENCOUNTER 2024-06-07 11:58 | Day surgery (SDC) | payer MEDICARE, OTHER ==
[~2024-06-07 11:58] MED LIST changes: +ACETAMINOPHEN TAB 500 MG TAB PO PRN; +HYDROmorphone 0.5 MG/0.5 ML SYRINGE IVP PRN; -LACTATED RINGERS 1,000 ML IV SCH; +ONDANSETRON 4 MG/2 ML VIAL IVP PRN; +droPERidol 5 MG/2 ML VIAL IVP ONE
--- NOTE | 2024-06-07 11:58 | P.GSHP ---
History of Present Illness H&P Date: 06/07/24 CHIEF COMPLAINT: Right chest wall/abdominal mass HISTORY OF PRESENT ILLNESS: The patient is a 59 year-old female with history of mass along the right chest wall/abdomen for over 6 months with increased pain tenderness. She presents today for surgical excision. PAST MEDICAL HISTORY: Please see list. PAST SURGICAL HISTORY: Please see list. MEDICATIONS: Please see list. ALLERGIES: Please see list. SOCIAL HISTORY: No illicit drug use FAMILY HISTORY: No reports of Crohn disease or ulcerative colitis. REVIEW OF ORGAN SYSTEMS: CONSTITUTIONAL: No reports of fevers or chills. GI: Denies any blood in stools or constipation. PHYSICAL EXAM: VITAL SIGNS: Stable SKIN: Well perfused. Good skin turgor. Right chest wall/right upper abdominal wall swelling/lipoma Musculoskeletal: No clubbing cyanosis or edema GENERAL: Well developed and in no acute distress. Pleasant. HEENT: No sclera icterus. Extraocular movements grossly intact. Moist buccal mucosa. Head is atraumatic, normocephalic. Hears conversational speech. No nasal drainage. NECK: Supple without lymphadenopathy. No JV distention. CHEST: Non-labored respirations and equal bilateral excursions. CARDIOVASCULAR: Regular rate and rhythm. Palpable 2+ radial pulses. ABDOMEN: Soft. Non-tender. Nondistended. NEUROLOGIC: No focal or lateralizing signs. PSYCH: Appropriate affect. Alert and oriented to person, place and time. ASSESSMENT: 1. Right chest wall/right abdominal wall lipomas. PLAN: 1. Patient recently had major surgery in the last 6 months, for which cardiac clearance was obtained. 2. Downtime at least 2 weeks regarding wound healing and 24 to 48 [address]. 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 frontal desection and fusion c5-7 Past Anesthesia/Blood Transfusion Reactions: Family History of Problems w/ Anesthesia, Motion Sickness Additional Past Anesthesia/Blood Transfusion Reaction / Comment(s): "CAN'T RIDE IN BACK SEAT OF CAR." Daughter stopped breathing after surgery due to Morphine Smoking Status: Never smoker - Past Family History Father Additional Family Medical History / Comment(s): HAD TOTAL OCCLUSION LT GROIN - HAD SX Mother Family Medical History: Dementia, Diabetes Mellitus, Thyroid Disorder Medications and Allergies Home Medications Medication Instructions Recorded Confirmed Type Atorvastatin [Lipitor] 80 mg PO DAILY 01/26/15 05/31/24 History Citalopram Hydrobromide 40 mg PO DAILY 01/26/15 05/31/24 History [Citalopram HBr] Omeprazole [PriLOSEC] 20 mg PO DAILY 01/26/15 05/31/24 History Magnesium Oxide [Mag-Ox] 400 mg PO DAILY 07/18/16 05/31/24 History Montelukast [Singulair] 10 mg PO DAILY 07/18/16 05/31/24 History Levothyroxine Sodium [Synthroid] 137 mcg PO DAILY 02/25/19 05/31/24 History amLODIPine [Norvasc] 10 mg PO DAILY 02/25/19 05/31/24 History Cholecalciferol (Vitamin D3) 125 mcg PO DAILY 08/27/20 05/31/24 History [Vitamin D3] Gabapentin [Neurontin] 300 mg PO TID 08/27/20 05/31/24 History Insulin Aspart [NovoLOG Flexpen] 0 units SQ AC-TID 08/27/20 05/31/24 History carvediloL [Coreg] 12.5 mg PO BID 08/27/20 05/31/24 History hydrALAZINE HCL [Apresoline] 50 mg PO BID 08/27/20 05/31/24 History metFORMIN HCL [Glucophage] 1,000 mg PO BID 08/27/20 05/31/24 History Furosemide [Lasix] 20 mg PO DAILY 11/17/21 05/31/24 History Ibuprofen 600 mg PO Q8H PRN 11/17/21 05/31/24 History Losartan Potassium [Cozaar] 50 mg PO DAILY 11/17/21 05/31/24 History diphenhydrAMINE HCL [Benadryl] 50 mg PO HS PRN 11/17/21 05/31/24 History Melatonin [Melatonin ER] 10 mg PO HS 12/24/21 05/31/24 History Insulin Glargine [Lantus Vial] 30 unit SQ QAM 03/08/22 05/31/24 History Acetaminophen [Tylenol] 325 mg PO Q4H PRN 05/31/24 05/31/24 History Empagliflozin [Jardiance] 25 mg PO DAILY 05/31/24 05/31/24 History Multivitamins, Thera [Multivitamin 1 tab PO DAILY 05/31/24 05/31/24 History (formulary)] Spironolactone 25 mg PO BID 05/31/24 05/31/24 History Allergies Allergy/AdvReac Type Severity Reaction Status Date / Time TESHA Inhibitors Allergy Anaphylaxis Verified 05/31/24 14:09 adhesive tape Allergy Rash/Hives Verified 05/31/24 14:09 cat dander Allergy Unknown Verified 05/31/24 14:09 Iodinated Contrast Media Allergy Anaphylaxis Verified 05/31/24 14:09 [Iodinated Contrast- Oral and IV Dye] iodine Allergy Anaphylaxis Verified 05/31/24 14:09 Penicillins Allergy Anaphylaxis Verified 05/31/24 14:09 shellfish derived [Shellfish] Allergy Anaphylaxis Verified 05/31/24 14:09 codeine AdvReac Nausea & Verified 05/31/24 14:09 Vomiting
[2024-06-07] MEDS: IV FLUID CONTINUATION 1,000 ML IV ONE (12:25)
[2024-06-07 12:43] LABS: Glucose,Whole Blood 127 mg/dL (70-110)
[2024-06-07] MEDS: LACTATED RINGERS 1,000 ML IV SCH (12:50)
[2024-06-07] MEDS: HEPARIN SODIUM,PORCINE 5,000 UNIT/ML 1 ML VIAL SQ PRN (12:50)
[2024-06-07] MEDS: ONDANSETRON 4 MG/2 ML VIAL IVP ONE (12:50)
[2024-06-07] MEDS: DEXAMETHASONE SOD PHOSPHATE 4 MG/ML 1 ML VIAL IV ONE (12:50)
[2024-06-07 12:57] LABS: Basophils % (A) 0 %; Eosinophils # (A) 0.3 k/uL (0-0.7); Eosinophils % (A) 3 %; HCT 41.5 % (34.0-46.0); HGB 13.3 gm/dL (11.4-16.0); Lymphocytes # (A) 2.1 k/uL (1.0-4.8); Lymphocytes % (A) 21 %; MCHC 32.1 g/dL (31.0-37.0); MCV 84.1 fL (80.0-100.0); Mean Platelet Volume 7.2; Monocytes # (A) 0.4 k/uL (0-1.0); Monocytes % (A) 4 %; Neutrophils # (A) 6.7 k/uL (1.3-7.7); Neutrophils % (A) 69 %; Platelet Count 418 k/uL (150-450); RBC 4.93 m/uL (3.80-5.40); RDW 14.4 % (11.5-15.5); WBC 9.7 k/uL (3.8-10.6)
[2024-06-07 13:02] VITALS: TEMP 97.4
[2024-06-07 13:03] LABS: ALT 12 U/L (4-34); AST 21 U/L (14-36); African American GFR (CKD) 51 (>60 ml/min/1.73 sqM); Albumin 3.9 g/dL (3.5-5.0); Alkaline Phosphatase 115 U/L (38-126); Anion Gap 8 mmol/L; Blood Urea Nitrogen 29 mg/dL (7-17); Calcium 9.5 mg/dL (8.4-10.2); Carbon Dioxide 23 mmol/L (22-30); Chloride 107 mmol/L (98-107); Glucose 128 mg/dL (74-99); Non-African American GFR(CKD) 44 (>60 ml/min/1.73 sqM); Potassium 4.4 mmol/L (3.5-5.1); Sodium 138 mmol/L (137-145); Total Bilirubin 0.6 mg/dL (0.2-1.3); Total Protein 6.7 g/dL (6.3-8.2)
[2024-06-07] MEDS ORDERED: MIDAZOLAM 2 MG/2 ML VIAL ONE (14:01)
[2024-06-07] MEDS ORDERED: LIDOCAINE 1% INJ 10MG/ML (20 ML MDV) ONE (14:01)
[2024-06-07] MEDS ORDERED: ROCURONIUM 10 MG/ML (5 ML VIAL) IV ONE (14:01)
[2024-06-07] MEDS ORDERED: fentaNYL (PF) 50 MCG/ML 2 ML AMP ONE (14:01)
[2024-06-07] MEDS ORDERED: ePHEDrine 50 MG/ML 1 ML VIAL ONE (14:01)
[2024-06-07] MEDS ORDERED: SUCCINYLCHOLINE CHLORIDE 200 MG/10 ML VIAL IV ONE (14:01)
[2024-06-07] MEDS ORDERED: PROPOFOL 10 MG/ML 20 ML VIAL IV ONE (14:01)
[2024-06-07] MEDS: ceFAZolin 3 GM in SODIUM CHLORIDE 0.9% 100 ML IVPB PRN (14:05)
[2024-06-07] MEDS: LIDOCAINE 1%-EPI 1:100,000 20 ML VIAL SQ ONE ×2 (14:38→14:44)
--- NOTE | 2024-06-07 16:23 | P.OP ---
Date of Procedure: 06/07/24 Description of Procedure: SURGEON: DOT TATE MD DIVISION SUPERVISOR: None. PREOPERATIVE DIAGNOSES: 1. Right upper chest wall mass and shoulder 2. Diabetes type 2, insulin-dependent with complications 3. Morbid obesity due to excess calories, BMI 57.0 4. Hypertensive heart disease 5. Gastroesophageal reflux disease 6. Obstructive sleep apnea POSTOPERATIVE DIAGNOSES: 1. Right upper chest wall mass and shoulder, 15 x 8 cm 2. Diabetes type 2, insulin-dependent with complications 3. Morbid obesity due to excess calories, BMI 57.0 4. Hypertensive heart disease 5. Gastroesophageal reflux disease 6. Obstructive sleep apnea PROCEDURES PERFORMED: 1. Excision of deep subcutaneous right chest wall mass, 15 x 8 cm 2. Complex closure of 15 cm along the right upper chest wall. ANESTHESIA: GETA and local ESTIMATED BLOOD LOSS: 5 mL. SPECIMENS REMOVED: Right upper chest wall mass COMPLICATIONS: None. FINDINGS: 1. Lipomatous mass deep right chest wall along right upper chest wall/shoulder over 15 cm x 8 cm excised 2. Interdigitating lipomatous mass extending deep to the right clavicle of the right shoulder INDICATIONS: The patient is a 59-year-old male with painful and palpable tumor along the right chest wall. Ultrasound was used to confirm lipomatous mass Now she presents for surgical intervention. Benefits and risks of surgical intervention were described including bleeding, infection. Informed consent was obtained. DESCRIPTION OR PROCEDURE: Patient was brought into the operating room, laid in supine position. After general induction, the chest was prepped and draped in a standard sterile fashion with ChloraPrep. Timeout protocol was confirmed with the surgical team regarding the patient's name, procedure to be performed including preoperative medications. DVT prophylaxis was confirmed. A field block was placed of the left chest wall inferior to the left inframammary crease. Indelible marker was placed around the mid chest lesion. A transverse incision using #15 blade was made along the marking into the dermis and subcutaneous tissue. Electro-Bovie cautery was used to excise the lesion down to the fascia in a circumferential fashion. A 4 cm lipoma was excised including pathological subcutaneous tissue the total size of 6 cm. 0 Vicryl for the deep subcutaneous tissue followed by 3-0 Monocryl in a running subcuticular fashion was placed along the dermis. The skin was cleansed and Exofin tape was applied followed by Optifoam. Local anesthetic was placed. At the end of the procedure, needle, sponge, and instrument count was verified correct by printing technician. The patient was awoken and taken to the second stage postanesthesia care unit. The patient tolerated the procedure well. Plan - Discharge Summary Discharge Rx Participant: No New Discharge Prescriptions: New Acetaminophen Tab [Tylenol Tab] 1,000 mg PO Q6HR PRN #30 tablet PRN Reason: Pain Continue Citalopram Hydrobromide [Citalopram HBr] 40 mg PO DAILY Atorvastatin [Lipitor] 80 mg PO DAILY Omeprazole [PriLOSEC] 20 mg PO DAILY Montelukast [Singulair] 10 mg PO DAILY Magnesium Oxide [Mag-Ox] 400 mg PO DAILY Levothyroxine Sodium [Synthroid] 137 mcg PO DAILY amLODIPine [Norvasc] 10 mg PO DAILY Insulin Aspart [NovoLOG Flexpen] 0 units SQ AC-TID carvediloL [Coreg] 12.5 mg PO BID metFORMIN HCL [Glucophage] 1,000 mg PO BID Gabapentin [Neurontin] 300 mg PO TID hydrALAZINE HCL [Apresoline] 50 mg PO BID Cholecalciferol (Vitamin D3) [Vitamin D3 (5000 Iu)] 125 mcg PO DAILY diphenhydrAMINE HCL [Benadryl] 50 mg PO HS PRN PRN Reason: Insomnia Spironolactone 25 mg PO BID Multivitamins, Thera [Multivitamin (formulary)] 1 tab PO DAILY Empagliflozin [Jardiance] 25 mg PO DAILY Furosemide [Lasix] 20 mg PO DAILY Losartan Potassium [Cozaar] 50 mg PO DAILY Melatonin [Melatonin ER] 10 mg PO HS Insulin Glargine [Lantus Vial] 30 unit SQ QAM Discontinued Ibuprofen 600 mg PO Q8H PRN PRN Reason: Pain Acetaminophen [Tylenol] 325 mg PO Q4H PRN PRN Reason: Pain Discharge Medication List Atorvastatin [Lipitor] 80 mg PO DAILY 01/26/15 [History] Citalopram Hydrobromide [Citalopram HBr] 40 mg PO DAILY 01/26/15 [History] Omeprazole [PriLOSEC] 20 mg PO DAILY 01/26/15 [History] Magnesium Oxide [Mag-Ox] 400 mg PO DAILY 07/18/16 [History] Montelukast [Singulair] 10 mg PO DAILY 07/18/16 [History] Levothyroxine Sodium [Synthroid] 137 mcg PO DAILY 02/25/19 [History] amLODIPine [Norvasc] 10 mg PO DAILY 02/25/19 [History] Cholecalciferol (Vitamin D3) [Vitamin D3 (5000 Iu)] 125 mcg PO DAILY 08/27/20 [History] Gabapentin [Neurontin] 300 mg PO TID 08/27/20 [History] Insulin Aspart [NovoLOG Flexpen] 0 units SQ AC-TID 08/27/20 [History] carvediloL [Coreg] 12.5 mg PO BID 08/27/20 [History] hydrALAZINE HCL [Apresoline] 50 mg PO BID 08/27/20 [History] metFORMIN HCL [Glucophage] 1,000 mg PO BID 08/27/20 [History] Furosemide [Lasix] 20 mg PO DAILY 11/17/21 [History] Losartan Potassium [Cozaar] 50 mg PO DAILY 11/17/21 [History] diphenhydrAMINE HCL [Benadryl] 50 mg PO HS PRN 11/17/21 [History] Melatonin [Melatonin ER] 10 mg PO HS 12/24/21 [History] Insulin Glargine [Lantus Vial] 30 unit SQ QAM 03/08/22 [History] Empagliflozin [Jardiance] 25 mg PO DAILY 05/31/24 [History] Multivitamins, Thera [Multivitamin (formulary)] 1 tab PO DAILY 05/31/24 [History] Spironolactone 25 mg PO BID 05/31/24 [History] Acetaminophen Tab [Tylenol Tab] 1,000 mg PO Q6HR PRN #30 tablet 06/07/24 [Rx] Follow up Appointment(s)/Referral(s): Dot Tate MD [STAFF PHYSICIAN] - 06/11/24 2:00 pm Patient Instructions/Handouts: Soft Tissue Mass (ED), Lipoma Removal (DC) Activity/Diet/Wound Care/Special Instructions: DO NOT REMOVE DRESSING. Will be removed in office. No lifting over 10 pounds in 2 weeks, June 21January shower BUT KEEP DRESSING DRY No bath tub soaks for two weeks until June 21 Diet as tolerated. Use Tylenol scheduled for the next 24-48 hours for best pain relief. Use ice along incisions for today to prevent swelling. Discharge Disposition: HOME SELF-CARE
[2024-06-07 16:39] LABS: Glucose,Whole Blood 138 mg/dL (70-110)
[2024-06-07 16:40] VITALS: PULSE 64
[2024-06-07 16:52] VITALS: BP 149/72; RESP 17
== END 2024-06-07 17:27 | disposition home or self-care (01) ==
LOC: OR 11:58
PROVIDERS: ATTEND Surgery Plastic and Reconstructive Surgery
DX: D17.1 Benign lipomatous neoplasm of skin and subcutaneous tissue of trunk
CPT/HCPCS: 80053; 85025; 88304

== ENCOUNTER → 2024-08-23 | Outpatient (CLI) | payer MEDICARE, OTHER ==
[2024-08-23 15:20] LABS: BUN/Creat Ratio 21.92 Ratio (12.00-20.00); Blood Urea Nitrogen 26.3 mg/dL (9.0-27.0); Calcium 9.4 mg/dL (8.7-10.3); Carbon Dioxide 27.4 mmol/L (21.6-31.8); Chloride 102 mmol/L (96-109); Glucose 136 mg/dL (70-110); Potassium 4.3 mmol/L (3.5-5.5); Sodium 141 mmol/L (135-145)
== END | disposition home or self-care (01) ==
LOC: LABWHC1 07:37
PROVIDERS: ATTEND Internal Medicine
DX: E11.40 Type 2 diabetes mellitus with diabetic neuropathy, unspecified (principal); E03.9 Hypothyroidism, unspecified; Z79.4 Long term (current) use of insulin
CPT/HCPCS: 36415; 80048; 83036; 84443

== ENCOUNTER 2024-10-02 06:15 | Day surgery (SDC) | payer MEDICARE, OTHER ==
[2024-09-30 15:08] VITALS: BMI 58.1
[~2024-10-02 06:15] MED LIST changes: -ACETAMINOPHEN TAB 500 MG TAB PO PRN; -HYDROmorphone 0.5 MG/0.5 ML SYRINGE IVP PRN; +LACTATED RINGERS 1,000 ML IV SCH; -LIDOCAINE 1% (10MG/ML) FOR IV START INTRADERMA PRN; -ONDANSETRON 4 MG/2 ML VIAL IVP PRN; +TETRACAINE 0.5% OPHTH (PF) DROPS 4 ML BTL OP PRN; -droPERidol 5 MG/2 ML VIAL IVP ONE
[2024-10-02] MEDS: LACTATED RINGERS 500 ML IV ONE (06:51)
[2024-10-02] MEDS: CYCLOPENTOLATE 1% OPHTH SOLN 2 ML BTL OP PRN (06:54)
[2024-10-02] MEDS: PHENYLEPHRINE 2.5% OPHTH DRP 2ML OP PRN (06:57)
[2024-10-02 07:01] VITALS: TEMP 97.4
[2024-10-02] MEDS: ONDANSETRON 4 MG/2 ML VIAL IVP STA (07:15)
[2024-10-02 07:16] LABS: Glucose,Whole Blood 166 mg/dL (70-110)
[2024-10-02] MEDS ORDERED: diphenhydrAMINE 50 MG/ML 1 ML VIAL ONE (07:25)
[2024-10-02] MEDS ORDERED: fentaNYL (PF) 50 MCG/ML 2 ML AMP ONE (07:25)
[2024-10-02] MEDS ORDERED: MIDAZOLAM 2 MG/2 ML VIAL ONE (07:25)
[2024-10-02] MEDS ORDERED: DEXAMETHASONE SOD PHOSPHATE 10 MG/ML 1 ML VIAL ONE (07:25)
[2024-10-02] MEDS: EPINEPHrine (PF) 0.3 ML in BALANCED SALT IRRIG SOLN COMB2 500 ML IRRIGATION ONE (07:40)
[2024-10-02] MEDS: HYALURONATE SODIUM INTRAOCULAR 1 EACH SYRINGE (12MG/ML) INTRAOCULA ONE (07:43)
[2024-10-02] MEDS: MOXIFLOXACIN HCL 0.5% DROPS 3 ML BTL OP PRN (07:44)
[2024-10-02] MEDS: LIDOCAINE 1% (PF) 10MG/ML VIAL SQ ONE (07:44)
[2024-10-02] MEDS: TIMOLOL 0.5% OPHTH DROPS 5 ML BTL OP PRN (07:45)
[2024-10-02] MEDS: BALANCED SALT IRRIG SOLN COMB2 15 ML IRRIG.SOLN IRRIGATION ONE (07:46)
--- NOTE | 2024-10-02 08:00 | P.OP ---
Date of Procedure: 10/02/24 Preoperative Diagnosis: NS & CS Postoperative Diagnosis: same Procedure(s) Performed: PIOL< OS Implants: MX60E 20.50 Anesthesia: MAC Surgeon: Piyush Martinez Pathology: none sent Condition: stable Disposition: same day Indications for Procedure: blurry vision Operative Findings: no complications
[2024-10-02 08:21] VITALS: BP 119/71; PULSE 50; RESP 16
--- NOTE | 2024-10-02 12:26 | OP ---
OPERATIVE REPORT DATE OF SERVICE : 10/02/2024 PREOPERATIVE DIAGNOSIS: Nuclear sclerosis, and cortical sclerosis. POSTOPERATIVE DIAGNOSIS: Nuclear sclerosis, and cortical sclerosis OPERATION: Phacoemulsification of cataract and intraocular lens implant of the left eye. ESTIMATED BLOOD LOSS: Zero. SPECIMEN TAKEN: None. NARRATIVE: After obtaining the appropriate consent, the patient was brought to the operating room where the patient was placed under cardiac monitoring and prepped and draped in the usual sterile manner. At the 5 o'clock position, a 15-degree super sharp blade was used to create a paracentesis followed by instillation of 1% Xylocaine MPF 50:50 mix with BSS into the anterior chamber. This was followed by Amvisc viscoelastic to stabilize the anterior chamber. At the 3 o'clock position a self-sealing corneal flap incision was created using 2.8 mm kole keratome. A cystotome was used to initiate a continuous tear capsulorrhexis which was completed with the Utrata forceps. A Binkhorst cannula was used to hydrodissect the lens nucleus followed by hydrodelineation. Phacoemulsification of the lens was performed utilizing phacochop in 8.02 seconds at 16.3% power. The remaining cortical material was removed using the irrigation aspiration mode followed by additional 1% Xylocaine MPF into the anterior chamber followed by viscoelastic to stabilize the capsular bag. A [employer]ch [employer] Lomb MX60E 20.5 diopters posterior chamber lens was placed into the capsular bag without difficulty. The remaining viscoelastic material was removed from the anterior chamber with the irrigation/aspiration. Balanced salt solution was used to normalize the intraocular pressure. The incision was checked for watertight integrity. The patient then received 2 drops of 0.5% timolol followed by 2 drops Vigamox, was lightly patched and shielded in the usual manner. There were no complications from the procedure. The patient tolerated the procedure well and was returned to recovery in good condition. MMODL / IJN: [id number] /
== END 2024-10-02 08:33 | disposition home or self-care (01) ==
LOC: OR 06:15
PROVIDERS: ATTEND Ophthalmology
DX: E11.36 Type 2 diabetes mellitus with diabetic cataract (principal); H25.813 Combined forms of age-related cataract, bilateral; E11.39 Type 2 diabetes mellitus with other diabetic ophthalmic complication; E11.65 Type 2 diabetes mellitus with hyperglycemia; H00.023 Hordeolum internum right eye, unspecified eyelid; H00.026 Hordeolum internum left eye, unspecified eyelid; H52.4 Presbyopia; H52.13 Myopia, bilateral; E11.40 Type 2 diabetes mellitus with diabetic neuropathy, unspecified; K21.9 Gastro-esophageal reflux disease without esophagitis; F32.A Depression, unspecified; I11.0 Hypertensive heart disease with heart failure; I50.9 Heart failure, unspecified; E78.5 Hyperlipidemia, unspecified; J45.909 Unspecified asthma, uncomplicated; G47.33 Obstructive sleep apnea (adult) (pediatric); E07.9 Disorder of thyroid, unspecified; M19.90 Unspecified osteoarthritis, unspecified site; N28.9 Disorder of kidney and ureter, unspecified; Z79.899 Other long term (current) drug therapy; Z79.84 Long term (current) use of oral hypoglycemic drugs; Z79.890 Hormone replacement therapy; Z90.49 Acquired absence of other specified parts of digestive tract; Z90.710 Acquired absence of both cervix and uterus; Z88.5 Allergy status to narcotic agent; Z98.890 Other specified postprocedural states; Z88.0 Allergy status to penicillin; Z88.8 Allergy status to other drugs, medicaments and biological substances; Z91.013 Allergy to seafood; Z91.041 Radiographic dye allergy status; Z91.09 Other allergy status, other than to drugs and biological substances
CPT/HCPCS: 66984; C1780; J2250; J1200; J1100; J2405; J0171; J3010; J2003

== ENCOUNTER → 2024-11-01 | Outpatient (CLI) | payer MEDICARE, OTHER ==
--- NOTE | 2024-11-01 14:15 | XR ---
EXAMINATION TYPE: XR chest 2V DATE OF EXAM: 11/01/2024 2:03 PM COMPARISON: None. CLINICAL INDICATION: Female, 59 years old with history of R059 COUGH, TECHNIQUE: XR chest 2V view(s) obtained. FINDINGS: The heart size is normal. The pulmonary vasculature is normal. The lungs are clear. IMPRESSION: 1. No acute pulmonary process. [facility], , 11/01/2024 2:13 PM
[2024-11-01 16:05] LABS: Influenza A Not Detected (Not Detectd); Influenza B Not Detected (Not Detectd); RSV Not Detected (Not Detectd)
[2024-11-01 18:43] LABS: Basophils # (A) 0.06 X 10*3/uL (0.00-0.10); Basophils % (A) 0.7 %; Eosinophils # (A) 0.21 X 10*3/uL (0.04-0.35); Eosinophils % (A) 2.4 %; HCT 45.5 % (37.2-46.3); Lymphocytes # (A) 1.92 X 10*3/uL (0.90-5.00); Lymphocytes % (A) 22.4 %; MCH 26.8 pg (27.0-32.0); MCHC 30.8 g/dL (32.0-37.0); MCV 87.2 FL (80.0-97.0); Mean Platelet Volume 10.1 FL (9.5-12.2); Monocytes # (A) 0.64 X 10*3/uL (0.20-1.00); Monocytes % (A) 7.5 %; NRBC Per 100 WBC 0 X 10*3/uL (0.00-0.01); Neutrophils # (A) 5.73 X 10*3/uL (1.80-7.70); Neutrophils % (A) 66.8 %; Platelet Count 409 X 10*3/uL (140-440); RBC 5.22 X 10*6/uL (4.10-5.20); RDW 14.1 % (11.5-14.5); WBC 8.58 X 10*3/uL (4.50-10.00)
== END | disposition home or self-care (01) ==
LOC: LABWHC1 13:19
PROVIDERS: ATTEND Internal Medicine
DX: Z11.2 Encounter for screening for other bacterial diseases (principal); Z13.9 Encounter for screening, unspecified; Z11.52 Encounter for screening for COVID-19; J06.9 Acute upper respiratory infection, unspecified; J12.9 Viral pneumonia, unspecified; R05.9 Cough, unspecified
CPT/HCPCS: 36415; 71046; 85025; 87636

== ENCOUNTER → 2024-11-25 | Outpatient (CLI) | payer MEDICARE, OTHER ==
--- NOTE | 2024-11-25 10:36 | XR ---
EXAMINATION TYPE: XR chest 2V DATE OF EXAM: 11/25/2024 10:15 AM COMPARISON: Chest radiographs from 11/01/2024 CLINICAL INDICATION: Female, 59 years old with history of R05.9 COUGH; TECHNIQUE: XR chest 2V Frontal and lateral views of the chest. FINDINGS: Lungs/Pleura: There is no evidence of pleural effusion, focal consolidation, or pneumothorax. Pulmonary vascularity: Unremarkable. Heart/mediastinum: Cardiomediastinal silhouette is unremarkable. Musculoskeletal: No acute osseous pathology. There is fixation hardware in the lower cervical spine. Other findings: None IMPRESSION: No acute cardiopulmonary disease/process. [facility], , 11/25/2024 10:33 AM
[2024-11-25 11:30] LABS: Influenza A Not Detected (Not Detectd); Influenza B Not Detected (Not Detectd); RSV Not Detected (Not Detectd)
[2024-11-25 15:16] LABS: Basophils # (A) 0.11 X 10*3/uL (0.00-0.10); Basophils % (A) 1.1 %; Eosinophils # (A) 0.27 X 10*3/uL (0.04-0.35); Eosinophils % (A) 2.8 %; HCT 43.3 % (37.2-46.3); HGB 13.3 g/dL (12.0-15.0); Lymphocytes # (A) 1.86 X 10*3/uL (0.90-5.00); MCH 26.5 pg (27.0-32.0); MCHC 30.7 g/dL (32.0-37.0); MCV 86.3 FL (80.0-97.0); Monocytes % (A) 6.1 %; NRBC Per 100 WBC 0 X 10*3/uL (0.00-0.01); Neutrophils # (A) 6.92 X 10*3/uL (1.80-7.70); Neutrophils % (A) 70.6 %; Platelet Count 380 X 10*3/uL (140-440); RBC 5.02 X 10*6/uL (4.10-5.20); RDW 14.1 % (11.5-14.5)
== END | disposition home or self-care (01) ==
LOC: LABWHC1 09:46
PROVIDERS: ATTEND Internal Medicine
DX: Z11.2 Encounter for screening for other bacterial diseases (principal); Z13.9 Encounter for screening, unspecified; Z11.52 Encounter for screening for COVID-19; J06.9 Acute upper respiratory infection, unspecified; J12.9 Viral pneumonia, unspecified
CPT/HCPCS: 36415; 71046; 85025; 87636

== ENCOUNTER → 2024-12-17 | Outpatient (CLI) | payer MEDICARE, OTHER | END | disposition home or self-care (01) | LOC: LABWHC1 07:49 | PROVIDERS: ATTEND Internal Medicine | DX: E11.40 Type 2 diabetes mellitus with diabetic neuropathy, unspecified (principal); Z79.4 Long term (current) use of insulin | CPT/HCPCS: 36415; 83036 ==

== ENCOUNTER → 2025-01-13 | Outpatient (CLI) | payer MEDICARE, OTHER ==
[2025-01-13 09:31] LABS: Creatinine,Urine Random 79.9 mg/dL; Protein/Creatinine Ratio,Urine 0.063
[2025-01-13 15:00] LABS: Basophils # (A) 0.11 X 10*3/uL (0.00-0.10); Basophils % (A) 1.2 %; Eosinophils # (A) 0.21 X 10*3/uL (0.04-0.35); Eosinophils % (A) 2.4 %; HCT 46.8 % (37.2-46.3); HGB 14.2 g/dL (12.0-15.0); Lymphocytes # (A) 1.94 X 10*3/uL (0.90-5.00); Lymphocytes % (A) 21.9 %; MCH 26.5 pg (27.0-32.0); MCHC 30.3 g/dL (32.0-37.0); MCV 87.3 FL (80.0-97.0); Mean Platelet Volume 9.5 FL (9.5-12.2); Monocytes # (A) 0.59 X 10*3/uL (0.20-1.00); Monocytes % (A) 6.7 %; NRBC Per 100 WBC 0 X 10*3/uL (0.00-0.01); Neutrophils # (A) 5.97 X 10*3/uL (1.80-7.70); Neutrophils % (A) 67.5 %; Platelet Count 375 X 10*3/uL (140-440); RBC 5.36 X 10*6/uL (4.10-5.20); RDW 14.9 % (11.5-14.5); WBC 8.85 X 10*3/uL (4.50-10.00)
[2025-01-13 15:46] LABS: % Iron Saturation 13.58 (12.00-45.00); ALT 11 U/L (8-44); AST 17 U/L (13-35); Albumin/Globulin Ratio 1.54 Ratio (1.60-3.17); Alkaline Phosphatase 128 U/L (41-126); BUN/Creat Ratio 23.09 Ratio (12.00-20.00); Blood Urea Nitrogen 25.4 mg/dL (9.0-27.0); Calcium 9.6 mg/dL (8.7-10.3); Carbon Dioxide 26.3 mmol/L (21.6-31.8); Chloride 102 mmol/L (96-109); Chol/HDL Ratio 3.61 Ratio; Creatine Kinase 47 U/L (26-186); Ferritin 48.4 ng/mL (10.0-291.0); Globulin 2.6 g/dL (1.6-3.3); Glucose 161 mg/dL (70-110); Iron 47 UG/DL (50-170); LDL Cholesterol,Calculated 78.8 mg/dL (0.0-131.0); Phosphorus 4.1 mg/dL (2.4-5.1); Potassium 4.3 mmol/L (3.5-5.5); Sodium 141 mmol/L (135-145); T4, Free (Free Thyroxine) 1.14 ng/dL (0.80-1.80); Total Bilirubin 0.4 mg/dL (0.3-1.2); Total Iron Binding Capacity 346 UG/DL (228-460); Total Protein 6.6 g/dL (6.2-8.2); Uric Acid 5.8 mg/dL (2.9-7.7)
[2025-01-13 17:06] LABS: Erythrocyte Sedimentation Rate 19 mm/Hr (0-30)
[2025-01-13 20:28] LABS: Microalbumin Creatinine Ratio <14 mg/g Cr (0-30); Urine Creatinine 84.3 mg/dL (28.0-217.0)
== END | disposition home or self-care (01) ==
LOC: LABWHC1 08:12
PROVIDERS: ATTEND Internal Medicine
DX: I12.9 Hypertensive chronic kidney disease with stage 1 through stage 4 chronic kidney disease, or unspecified chronic kidney disease (principal); N18.30 Chronic kidney disease, stage 3 unspecified; D63.1 Anemia in chronic kidney disease; J45.909 Unspecified asthma, uncomplicated; E78.5 Hyperlipidemia, unspecified; E87.8 Other disorders of electrolyte and fluid balance, not elsewhere classified; E05.90 Thyrotoxicosis, unspecified without thyrotoxic crisis or storm; M10.9 Gout, unspecified; E03.9 Hypothyroidism, unspecified; E66.9 Obesity, unspecified; M81.0 Age-related osteoporosis without current pathological fracture; R80.9 Proteinuria, unspecified
CPT/HCPCS: 36415; 80053; 80061; 82043; 82306; 82550; 82570; 82728; 83036; 83540; 83550; 83735; 84100; 84156; 84439; 84443; 84550; 85025; 85652; 86140

== ENCOUNTER → 2025-01-16 | Outpatient (CLI) | payer MEDICARE, OTHER ==
--- NOTE | 2025-01-16 13:06 | MM ---
Reason for Exam: Screening (asymptomatic). Last mammogram was performed 2 year(s) and 2 month(s) ago. Patient History: Menarche at age 13. First Full-Term at age 21. Left ovary removed at age 27. Right ovary removed at age 27. Hysterectomy at age 27. Postmenopausal. 2017, Benign Stereotactic Core Biopsy on the left side. Risk Values: Ju 5 year model risk: 1.4%. NCI Lifetime model risk: 8.1%. Prior Study Comparison: 12/16/2017 Bilateral Screening Mammogram, [facility]. 02/18/2019 Bilateral Screening Mammogram, [facility]. 12/07/2021 Bilateral Screening Mammogram, [facility]. 12/10/2021 Right Diagnostic Mammogram, [facility]. 12/09/2022 Bilateral MG screening mammo w CAD, [facility]. Tissue Density: The breasts are almost entirely fatty. Findings: Analyzed By CAD. Right breast: There is no suspicious group of microcalcifications or new suspicious mass. Benign-appearing calcifications right breast. Left breast: There is no suspicious group of microcalcifications or new suspicious mass. Benign-appearing calcifications left breast. Overall Assessment: Benign, BI-RAD 2 Management: Screening Mammogram of both breasts in [address] [facility] will attempt to contact patient to return for supplemental views and ultrasound if indicated. Patient should continue monthly self-breast exams. A clinical breast exam by your physician is recommended on an annual basis. This exam should not preclude additional follow-up of suspicious palpable abnormalities. Note on Ju scores and lifetime risk: 1. A Ju score greater than 3% is considered moderate risk. If this is the case, consider specialist referral to assess eligibility for a risk reducing agent. 2. If overall lifetime risk for the development of breast cancer is 20% or higher, the patient may qualify for future screening with alternating mammogram and breast MRI. [facility], , 01/16/2025 12:27 PM. Electronically signed and approved by: Asim Simmons DO
== END | disposition home or self-care (01) ==
LOC: RADMAMWWP 11:52
PROVIDERS: ATTEND Internal Medicine
DX: Z12.31 Encounter for screening mammogram for malignant neoplasm of breast (principal); R92.313 Mammographic fatty tissue density, bilateral breasts; Z78.0 Asymptomatic menopausal state
CPT/HCPCS: 77067